=== PATIENT | female | born 1955 | race Caucasian/White ===

== ENCOUNTER 2020-12-17 17:24 | Outpatient (CLI) | payer OTHER, SELFPAY ==
--- NOTE | ~2020-12-17 | XR_ITS ---
EXAMINATION: XR chest 2V DATE: 12/17/2020 17:53 INDICATION: Midsternal to left-sided chest pain. TECHNIQUE: Frontal and lateral views of the chest were obtained. COMPARISON: Chest 2 views 12/31/2017 FINDINGS: There is a left suprahilar mass. No pleural effusion or pneumothorax. The heart size is nor mal. There is mild chronic anterior wedging of multiple thoracic vertebral bodies. IMPRESSION: 1. Left suprahilar mass suspicious for primary bronchogenic carcinoma. Chest CT is recommended. Reviewed, dictated and finalized at location A. [employer]ODUCTION ENGINEER
== END 2020-12-17 17:25 | disposition home or self-care (01) ==
PROVIDERS: PCP Family Medicine; Visit Provider Internal Medicine Cardiovascular Disease
DX: R07.89 Other chest pain (principal); M79.602 Pain in left arm
CPT/HCPCS: 71046

== ENCOUNTER 2020-12-23 16:26 | Outpatient (CLI) | payer OTHER, SELFPAY ==
--- NOTE | ~2020-12-23 | CT_ITS ---
EXAMINATION:CT diagnostic chest wo con DATE: 12/23/2020 16:48 INDICATION: Left lung mass. TECHNIQUE: Computed tomography (CT) of the chest was performed without intravenous contrast. Automate d exposure control and iterative reconstruction technique were employed. The dose-length product (DLP ) was 334.00 mGy-cm. COMPARISON: Chest 2 views 12/17/2020 FINDINGS: There is mild scarring at the lung apices. There is mild emphysema. There is a left hilar m ass contiguous with more peripheral airspace opacities in left upper lobe with lung volume loss. The mass and contiguous airspace opacities the other measure 8.3 x 3.7 cm. The bladder between the mass a nd presumed postobstructive atelectasis is not apparent. There are greater than 10 scattered nodules in the lungs measuring up to 4 mm. There is a 5 mm groundglass opacity in right lower lobe. No pleura l effusion. There is a 10 x 14 mm left supraclavicular lymph node. There is a mildly enlarged prevasc ular lymph node. The heart size is normal. There are coronary artery calcifications. No pericardial e ffusion. There is mild chronic anterior wedging of multiple vertebral bodies. There is moderate thora cic spondylosis. IMPRESSION: 1. Left hilar mass with postobstructive left upper lobe atelectasis, consistent with primary bronchog enic carcinoma. 2. Mild mediastinal and left supraclavicular lymphadenopathy suspicious for metastatic disease. Consi yodit ultrasound-guided core needle biopsy of a left supraclavicular lymph node for diagnosis. 3. Greater than 10 scattered pulmonary nodules measuring up to 4 mm, which may be granulomatous disea se or metastatic disease. Reviewed, dictated and finalized at location A. MARKETING IMPRESSION: 1. Left hilar mass with postobstructive left upper lobe atelectasis, consistent with primary bronchogenic carcinoma. 2. Mild mediastinal and left supraclavicular lymphadenopathy suspicious for met astatic disease. Consider ultrasound-guided core needle biopsy of a left suprac lavicular lymph node for diagnosis. 3. Greater than 10 scattered pulmonary nodules measuring up to 4 mm, which may be granulomatous disease or metastatic disease.
== END 2020-12-23 16:27 | disposition home or self-care (01) ==
PROVIDERS: PCP Family Medicine; Visit Provider Internal Medicine Cardiovascular Disease
DX: R91.8 Other nonspecific abnormal finding of lung field (principal)
CPT/HCPCS: 71250

== ENCOUNTER 2021-01-09 10:56 | Outpatient (CLI) | payer OTHER, SELFPAY ==
--- NOTE | ~2021-01-09 | US_ITS ---
EXAMINATION: US bx lymph node DATE: 01/09/2021 13:39 INDICATION: Left supraclavicular lymphadenopathy. TECHNIQUE: The procedure including the risks, benefits, and alternatives was discussed with the patie nt. Risks discussed included bleeding and infection. The patient understood the risks and agreed to p roceed. The skin overlying the left supraclavicular region was prepped and draped in usual sterile fa shion. Anesthetic was administered with 1% lidocaine subcutaneously. An 18 gauge core biopsy needle was then used to obtain 3 core biopsy specimens under continuous sonographic guidance. The entry sit e was cleaned and dressed. There were no immediate complications. FINDINGS: Ultrasound images demonstrate the needle in an 11 x 10 mm left supraclavicular lymph node. IMPRESSION: 1. Ultrasound-guided core needle biopsy of a left supraclavicular lymph node. Reviewed, dictated and finalized at location A.
== END 2021-01-09 10:57 | disposition home or self-care (01) ==
PROVIDERS: PCP Family Medicine; Referring Provider Internal Medicine Pulmonary Disease; Visit Provider Internal Medicine Cardiovascular Disease
DX: R07.89 Other chest pain (principal); M79.602 Pain in left arm
CPT/HCPCS: 38505; 88305; 88313; 88342

== ENCOUNTER 2021-05-30 06:35 | Emergency (ER) | payer OTHER, SELFPAY ==
[2021-05-30] VITALS (60 sets, daily range): BP systolic 93–151; BP diastolic 51–102; PULSE 95–140; RESP 14–32; TEMP 36.6–36.9; O2SAT 94–99
[2021-05-30] MEDS: SODIUM CHLORIDE 0.9% IV 1,000 ML 999 ML IV CONT ×3 (07:20→10:01)
[2021-05-30] MEDS: PROMETHAZINE HCL 25 MG/ML AMPUL 12.5 MG IV PUSH (07:29)
[2021-05-30 07:37] LABS: Hematocrit 31.8 % (37.0-47.0); Immature Granulocyte Absolute 0.01 K/mm3 (0.00-0.031); Immature Granulocyte Percent A 1.5 % (0-0.5); Lymphocytes Absolute Auto 0.36 K/mm3 (0.9-3.2); Lymphocytes Percent Auto 52.9 % (18.3-44.2); Mean Corpuscular HGB Conc 31.4 g/dl (32-36); Mean Corpuscular Hemoglobin 26.7 pg (26-34); Mean Corpuscular Volume 84.8 fl (80-100); Mean Platelet Volume 9.6 fl (7.4-10.4); Monocytes Absolute Auto 0.1 K/mm3 (0.1-0.6); Monocytes Percent Auto 11.8 % (2.6-8.5); Neutrophils Absolute Auto 0.2 K/mm3 (1.3-6.7); Neutrophils Percent Auto 33.8 % (45.5-73.1); Platelet Count Result 304 k/mm3 (150-375); Red Blood Count 3.75 M/mm3 (4.2-5.4)
[2021-05-30 07:43] LABS: White Blood Count 0.7 K/mm3 (4.5-10.0)
--- NOTE | 2021-05-30 07:43 | PC.NURSE ---
50mL normal saline bag used for Phenergan dilution.
[2021-05-30 07:44] LABS: Hypochromasia 2+ (NORMAL); Platelet Estimate Adequate (Adequate)
[2021-05-30 07:54] LABS: Albumin Level 4.1 g/dL (3.5-5.1); Alkaline Phosphatase 133 U/L (38-126); Anion Gap 17 mmol/L (8-16); Aspartate Amino Transferase 26 U/L (14-36); Bilirubin,Total 0.6 mg/dL (0.2-1.3); Blood Urea Nitrogen 34 mg/dL (7-17); Carbon Dioxide 22 mmol/L (22-30); Chloride 93 mmol/L (98-107); Estimated CRCL calculation 59 ml/min; Estimated Glomerular Filt Rate > 60; Glucose 215 mg/dL (65-110); Lipase 37 U/L (23-300); Potassium 3.3 mmol/L (3.4-5.0); Sodium 132 mmol/L (137-145)
[2021-05-30 07:58] LABS: Alanine Aminotransferase 29 U/L (4-35)
[2021-05-30 09:39] LABS: Add Urine Microscopic? YES; Appearance Urine Clear (Clear); Bacteria Urine Trace /hpf; Bilirubin Urine Negative (Negative); Blood Urine 1+ (Negative); Cellular Casts Urine Present /lpf; Color Urine Yellow (Yellow); Glucose Urine UA 1+ mg/dL (Negative); Ketones Urine Negative (Negative); Leukocyte Esterase Ur Negative LEU/UL (Negative); Mucus Urine Few /lpf; Nitrate Urine Negative (Negative); Protein Urine 2+ mg/dL (Negative); Specific Grav Ur 1.024 (1.001-1.035); Urobilinogen Urine Negative mg/dL (<2.0)
--- NOTE | 2021-05-30 09:52 | ED.NAVMDI ---
HPI - Nausea/Vomiting/Diarrhea General Chief complaint: Nausea/Vomiting/Diarrhea Stated complaint: N/V/D Time Seen by Provider: 05/30/21 07:06 History of Present Illness HPI Narrative: Patient is a 65-year-old female with history of lung cancer with metastases to her brain, hips, and lymph nodes that presents ER with nausea and vomiting. She also has been having some diarrhea. Symptoms began 2 days ago. Patient reports last chemotherapy was high dose and occurred 8 days ago. She sees Dr. Lagn with [facility] at [facility]. Denies fevers or chills. She is weak. She has not been on any antibiotics. Related Data Home Medications Medication Instructions Recorded Confirmed alprazolam 0.25 mg tablet 0.25 mg PO TID PRN 12/22/20 12/22/20 aspirin 81 mg tablet,delayed 81 mg PO DAILY 12/22/20 12/22/20 release metoprolol tartrate 75 mg tablet 75 mg PO Q12H 12/22/20 12/22/20 rosuvastatin 40 mg tablet 40 mg PO DAILY 12/22/20 12/22/20 Allergies Allergy/AdvReac Type Severity Reaction Status Date / Time morphine Allergy Mild Unknown Verified 05/30/21 07:00 codeine Allergy Unknown Unknown Verified 05/30/21 07:00 Review of Systems Review of Systems: All systems reviewed & are unremarkable except as noted in HPI and below Constitutional: Constitutional: Denies chills, Denies fever(s) and Reports weakness ENT: Denies nasal congestion and Denies sore throat Cardiovascular: Cardiovascular: Denies chest pain, Denies rapid heart rate and Denies radiating jaw, neck or arm pain Respiratory: Respiratory: Denies cough and Denies dyspnea Gastrointestinal: Gastrointestinal: Denies abdominal pain, Denies constipation, Reports diarrhea, Reports nausea and Reports vomiting Genitourinary: Genitourinary: Denies nocturia, Denies dysuria and Denies flank pain [facility] Past Medical History Medical History (Updated 05/31/21 @ 15:35 by Edison Rosas MD) Anxiety BMI 32.0-32.9,adult Coronary artery disease Essential (primary) hypertension History of acute myocardial infarction Mass of lung Metastatic lung cancer (metastasis from lung to other site) Screen for colon cancer Screening for breast cancer Surgical History Surgical History History of heart artery stent Hx of tonsillectomy Family History Family History Other Diabetes mellitus Heart disease Social History Social History Smoking status: Former smoker Alcohol intake: current Exam Narrative: GENERAL: Fatigue-appearing, well-nourished, and in no acute distress. HEAD: Normocephalic, atraumatic. EYES: PERRL and EOMI. ENT: Mucous membranes moist. CHEST: Clear to auscultation. No respiratory distress. HEART: Tachycardic and regular.. Normal peripheral pulses. ABDOMEN: Soft, nontender, nondistended. EXTREMITIES: Normal range of motion. No edema. SKIN: Warm, dry, no rash. NEURO: Alert and oriented x3. PSYCH: Normal mood and affect. Course Course Emergency Course: I discussed case with the on-call oncologist Dr. Lind at [facility]. He recommends the patient receive IV antibiotics if she were to go to [facility] which patient would like to do. She has been started on vancomycin and Zosyn. She has had blood cultures and urine is cultured. She has had 3 L of IV fluid and is being started on a continuous drip of fluid. Dr. Barr with the hospitalist service has accepted the patient. Reevaluation(s) Reevaluation #1: Patient resting comfortably. White blood cell count trending up. Patient was found to have a critical potassium and hemoglobin on a.m. labs. Likely related to IV fluid patient been receiving. She received 1 unit of packed red blood cells and also received oral and IV potassium replacement. She now has a bed at [facility] and will be transferred. Date: 05/31/21
--- NOTE | 2021-05-30 13:45 | PC.NURSE ---
Patient has had multiple episodes of diarrhea in bed. Patient reports it just comes out. Linens and depends have been changed.
--- NOTE | 2021-05-30 14:23 | PC.NURSE ---
Amy from [facility] called asking if we still need a bed for the pt. Reported that bed's are still unavailable but may be open by end of day
--- NOTE | 2021-05-30 14:39 | PC.NURSE ---
Patient still on waitlist at this time, will update patient and family upon further information. Patient resting comfortably on stretcher.
[2021-05-30] MEDS: SODIUM CHLORIDE 0.9% IV 1,000 ML 125 ML IV CONT (18:27)
--- NOTE | 2021-05-30 19:23 | PC.NURSE ---
Report received from RADHA Karimi. Assumed care of patient at this time.
--- NOTE | 2021-05-30 20:49 | PC.NURSE ---
Spoke to Fany at [facility]...no beds available at this time. Still anticipating discharges this evening. Will call us if a bed becomes available.
[2021-05-30] MEDS: ONDANSETRON INJ 4 MG/2 ML VIAL IV PUSH (21:03)
[2021-05-31] VITALS (28 sets, daily range): BP systolic 88–111; BP diastolic 37–72; PULSE 76–97; RESP 14–27; TEMP 36.7; O2SAT 95–100
[2021-05-31] MEDS: SODIUM CHLORIDE 0.9% IV 1,000 ML 999 ML IV CONT (01:00)
[2021-05-31] MEDS: SODIUM CHLORIDE 0.9% IV 1,000 ML 125 ML IV CONT (03:05)
[2021-05-31 08:16] LABS: Eosinophils Percent Auto 0.8 % (0-4.4); Hematocrit 22.7 % (37.0-47.0); Immature Granulocyte Absolute 0.02 K/mm3 (0.00-0.031); Immature Granulocyte Percent A 1.5 % (0-0.5); Lymphocytes Percent Auto 69.2 % (18.3-44.2); Mean Corpuscular Hemoglobin 26.3 pg (26-34); Mean Corpuscular Volume 87.6 fl (80-100); Mean Platelet Volume 9.6 fl (7.4-10.4); Monocytes Absolute Auto 0.1 K/mm3 (0.1-0.6); Neutrophils Absolute Auto 0.2 K/mm3 (1.3-6.7); Neutrophils Percent Auto 18.5 % (45.5-73.1); Platelet Count Result 135 k/mm3 (150-375); Red Blood Count 2.59 M/mm3 (4.2-5.4)
[2021-05-31 08:26] LABS: White Blood Count 1.3 K/mm3 (4.5-10.0)
[2021-05-31 08:27] LABS: Hemoglobin 6.8 g/dL (12.0-15.0)
[2021-05-31 08:28] LABS: Hypochromasia 1+ (NORMAL)
[2021-05-31 08:32] LABS: Anion Gap 7 mmol/L (8-16); Blood Urea Nitrogen 15 mg/dL (7-17); Carbon Dioxide 26 mmol/L (22-30); Chloride 102 mmol/L (98-107); Estimated CRCL calculation 74 ml/min; Estimated Glomerular Filt Rate > 60; Glucose 102 mg/dL (65-110); Potassium 2.5 mmol/L (3.4-5.0); Sodium 135 mmol/L (137-145)
[2021-05-31] MEDS: POTASSIUM CHLORIDE 20 MEQ TABLET 40 MEQ PO (08:40)
[2021-05-31] MEDS: TUBING, BLOOD PLUM PUMP TUBING 1 EACH XX (11:15)
[2021-05-31] MEDS: SODIUM CHLORIDE 0.9% IV 250 ML 30 ML IV CONT (11:48)
== END 2021-05-31 16:18 | disposition short-term general hospital (02) ==
PROVIDERS: Emergency Medicine; Emergency Provider Emergency Medicine; PCP Family Medicine
DX: D70.9 Neutropenia, unspecified (principal); R19.7 Diarrhea, unspecified; E87.6 Hypokalemia; D64.9 Anemia, unspecified; C34.90 Malignant neoplasm of unspecified part of unspecified bronchus or lung; C77.9 Secondary and unspecified malignant neoplasm of lymph node, unspecified; C79.51 Secondary malignant neoplasm of bone; C79.31 Secondary malignant neoplasm of brain; I25.10 Atherosclerotic heart disease of native coronary artery without angina pectoris; I10 Essential (primary) hypertension; I25.2 Old myocardial infarction; F41.9 Anxiety disorder, unspecified; Z79.82 Long term (current) use of aspirin; Z79.899 Other long term (current) drug therapy; Z95.5 Presence of coronary angioplasty implant and graft; Z87.891 Personal history of nicotine dependence
CPT/HCPCS: 36415; 36430; 51701; 80048; 80053; 81001; 81025; 83690; 85025; 86850; 86900; 86901; 86920; 87040; 87086; 96361; 96365; 96366; 96367; 96368; 96375; 99285; A9270; J2405; J2543; J2550; J3370; J3480; J7030; J7050; P9016

== ENCOUNTER 2021-06-25 11:19 | Inpatient (IN) | payer OTHER, SELFPAY ==
[2021-06-25] VITALS (73 sets, daily range): BP systolic 74–129; BP diastolic 30–73; PULSE 77–94; RESP 17–30; TEMP 36.6–37.6; O2SAT 87–100; BMI 28.1
--- NOTE | ~2021-06-25 | US_ITS ---
EXAMINATION: US thoracentesis DATE: 06/30/2021 10:32 INDICATION: pleural effusion TECHNIQUE: The procedure and its risks, benefits, and alternatives were discussed with the patient. P otential risks discussed included bleeding, infection, and pneumothorax. The patient understood the r isks and agreed to proceed. The skin was prepped and draped in sterile fashion. 1% lidocaine was used for local anesthesia. Under ultrasound guidance, a 5 Fr catheter with trochar was advanced into the left pleural effusion. Fluid was aspirated. The catheter was removed, and a dressing was applied. The re were no immediate complications. FINDINGS: Ultrasound images demonstrate a left pleural effusion and the catheter within the fluid. IMPRESSION: 1. Successful ultrasound-guided thoracentesis yielding 400 mL of serosanguineous fluid. Reviewed, dictated and finalized at location A. IMPRESSION: 1. Successful ultrasound-guided thoracentesis yielding 400 mL of serosanguineo us fluid.
--- NOTE | ~2021-06-25 | CT_ITS ---
EXAMINATION: CTA chest PE protocol DATE: 06/25/2021 14:51 INDICATION: Transient alteration of awareness, shortness of breath, lung cancer TECHNIQUE: Computed tomography angiography (CTA) of the chest was performed with 100 mL Omnipaque-350 intravenous contrast timed to evaluate the pulmonary arteries. Coronal maximum intensity projection 3D-reconstructions were created by the technologist. The dose-length product (DLP) was 458.30 mGy-cm. Automated exposure control and iterative reconstruction technique were employed. COMPARISON: 12/23/2020 FINDINGS: The pulmonary arteries are well-opacified. No pulmonary embolism is identified. There is a moderate size left pleural effusion. The previously described infiltrating left perihilar mass is now well demonstrated however there is now complete left upper lobe collapse. A small portion in the sup erior aspect of the left lower lobe remains aerated. There is near-complete atelectasis of the inferi or portion of the left lower lobe. A small right pleural effusion is present. There has been interval development of innumerable small nodules throughout the right lung and throughout the visualized por tions of the left lung which measure up to 4 mm. There is no pneumothorax. The heart size is normal. There is subcarinal and right paratracheal lymphadenopathy. Calcified coronary artery atherosclerosis is noted. A sclerotic lesion has developed in the posterior aspect of the L1 vertebral body. IMPRESSION: 1. No pulmonary embolism identified. 2. Moderate-sized left pleural effusion with significant atelectasis of the left lower lobe and compl ete collapse of the left upper lobe due to infiltrate hilar mass. 3. Innumerable small nodules scattered throughout all visible aerated lungs, mediastinal lymphadenopa thy, and lytic lesions of the right scapula and L1 vertebral body, consistent with metastatic disease . Reviewed, dictated and finalized at location A. IMPRESSION: 1. No pulmonary embolism identified. 2. Moderate-sized left pleural effusion with significant atelectasis of the lef t lower lobe and complete collapse of the left upper lobe due to infiltrate hil ar mass. 3. Innumerable small nodules scattered throughout all visible aerated lungs, me diastinal lymphadenopathy, and lytic lesions of the right scapula and L1 verteb ral body, consistent with metastatic disease.
--- NOTE | ~2021-06-25 | XR_ITS ---
EXAMINATION: XR chest 1V portable DATE: 07/01/2021 05:41 INDICATION: Pleural effusion. TECHNIQUE: A single frontal view of the chest was obtained. COMPARISON: Chest single view 06/30/2021 FINDINGS: There is complete opacification of left hemithorax with volume loss. There are innumerable nodules in right lung. There are airspace opacities in perihilar right lung and peripheral left midlu ng zone. No pneumothorax. The heart size is normal. IMPRESSION: 1. Stable complete opacification of left hemithorax with volume loss, likely a combination of primary bronchogenic carcinoma and atelectasis. 2. Innumerable nodules in right lung, consistent with metastatic disease. 3. Worsened airspace opacities in right perihilar region and peripheral right midlung zone, consisten t with pulmonary edema versus pneumonia. Reviewed, dictated and finalized at location A. IMPRESSION: 1. Stable complete opacification of left hemithorax with volume loss, likely a combination of primary bronchogenic carcinoma and atelectasis. 2. Innumerable nodules in right lung, consistent with metastatic disease. 3. Worsened airspace opacities in right perihilar region and peripheral right m idlung zone, consistent with pulmonary edema versus pneumonia.
--- NOTE | ~2021-06-25 | CT_ITS ---
EXAMINATION: CT brain wo con INDICATION: Transient alteration of awareness, lung cancer COMPARISON: 03/01/2013 TECHNIQUE: Standard unenhanced head CT. The dose-length product (DLP) was 681.00 mGy-cm. The mA was a djusted according to patient size. Iterative reconstruction technique was employed. FINDINGS: There is no acute intraparenchymal hemorrhage. No evidence of mass lesion. No evidence of a cute infarction. There is mild periventricular and subcortical hypodensity probably related to small vessel ischemic disease. There is mild prominence of the sulci and ventricles related to cerebral atr ophy. Intracranial calcified cerebral atherosclerosis is noted. There are no extra-axial collections. There is no mass effect or midline shift. The orbits and soft tissues are unremarkable. There is mil d mucosal thickening of the paranasal sinuses. IMPRESSION: 1. No acute intracranial abnormality. 2. Age related findings. Reviewed, dictated and finalized at location A.
--- NOTE | ~2021-06-25 | XR_ITS ---
EXAMINATION: XR_CXR1VTHORA_CR DATE: 06/26/2021 17:18 INDICATION: Left pleural effusion postthoracentesis TECHNIQUE: frontal view of the chest was obtained. COMPARISON: Chest radiograph dated 06/25/21 at 4:03 PM FINDINGS: Persistent airspace opacities throughout the left lung consistent with likely combination of atelecta sis and pneumonia. There is new aeration of portions of the left mid and lower lung zone consistent w ith decrease in size of a still moderate to large left pleural effusion. No pneumothorax. There is a diffuse reticulonodular pattern throughout the right lung with appearance on prior CT suggesting meta static disease possibly with superimposed pulmonary edema and/or pneumonia. No right-sided pleural ef fusion. The left side of the cardiac mediastinal silhouette remains obscured. Left internal jugular c entral venous catheter with distal tip at the confluence of the superior vena cava and left brachioce phalic vein. IMPRESSION: 1. Decreased now moderate to large left pleural effusion postthoracentesis. 2. Extensive airspace opacities throughout the left lung likely combination of atelectasis and pneumo eladia. 3. Reticulonodular pattern throughout the right lung suspicious for metastatic disease. Reviewed, dictated and finalized at location A. IMPRESSION: 1. Decreased now moderate to large left pleural effusion postthoracentesis. 2. Extensive airspace opacities throughout the left lung likely combination of atelectasis and pneumonia. 3. Reticulonodular pattern throughout the right lung suspicious for metastatic disease.
--- NOTE | ~2021-06-25 | XR_ITS ---
EXAMINATION: XR chest 1V portable DATE: 06/28/2021 05:38 INDICATION: Pleural effusion TECHNIQUE: frontal view of the chest was obtained. COMPARISON: Chest radiograph dated 06/27/2021 FINDINGS: Continued progression of a large left pleural effusion with associated collapse of the left lung resu lting in now essentially complete opacification of the left hemithorax. Again seen is diffuse reticul onodular pattern throughout the right lung. No pneumothorax or right pleural effusion. The left side of the cardiomediastinal silhouette remains obscured. Left internal jugular central venous catheter w ith distal tip at the confluence of the superior vena cava and left brachiocephalic vein. IMPRESSION: 1. Complete opacification of the left hemithorax consistent with large left pleural effusion and asso ciated atelectasis, cannot exclude underlying pneumonia or malignancy. 2. Reticulonodular pattern throughout the right lung suspicious for metastatic disease and could not exclude superimposed mild pulmonary edema. Reviewed, dictated and finalized at location A. IMPRESSION: 1. Complete opacification of the left hemithorax consistent with large left ple ural effusion and associated atelectasis, cannot exclude underlying pneumonia o r malignancy. 2. Reticulonodular pattern throughout the right lung suspicious for metastatic disease and could not exclude superimposed mild pulmonary edema.
--- NOTE | ~2021-06-25 | XR_ITS ---
EXAMINATION: XR chest port-a-cath/central DATE: 06/25/2021 16:33 INDICATION: Central line placement. TECHNIQUE: A single frontal view of the chest was obtained on 2 radiographs. COMPARISON: Chest single view 06/25/2021 at 12:19 PM FINDINGS: There is a large left pleural effusion with near complete opacification of left hemithorax. There are small nodules in right lung. No pneumothorax. The heart size is obscured. A left internal jugular central venous catheter is seen with tip in the superior vena cava. IMPRESSION: 1. Central line tip in superior vena cava. 2. Large left pleural effusion. 3. Small right lung nodules, consistent with metastatic disease. Reviewed, dictated and finalized at location A.
--- NOTE | ~2021-06-25 | XR_ITS ---
EXAMINATION: XR chest 1V INDICATION: Syncope and shortness of breath, history of left lung cancer TECHNIQUE: AP view of the chest is obtained. COMPARISON: 12/17/2020 FINDINGS: There is near complete opacification of the left hemithorax. The right lung is clear. The c ardiac silhouette is obscured. The visualized osseous structures are unremarkable no pneumothorax is identified. IMPRESSION: 1. Near complete opacification of the left hemithorax which may be due to accommodation of pleural ef fusion and/or atelectasis and/or pneumonia. Reviewed, dictated and finalized at location A. IMPRESSION: 1. Near complete opacification of the left hemithorax which may be due to accom modation of pleural effusion and/or atelectasis and/or pneumonia.
--- NOTE | ~2021-06-25 | US_ITS ---
EXAMINATION: US thoracentesis DATE: 06/26/2021 17:18 INDICATION: Left pleural effusion TECHNIQUE: The procedure and its risks and benefits were discussed with the patient. Potential risks discussed included bleeding, infection, and pneumothorax. The patient understood the risks and agreed to proceed. The skin was prepped and draped in sterile fashion. 1% lidocaine was used for local anes thesia. Under ultrasound guidance, a 5 Fr catheter with trochar was advanced into the left pleural ef fusion. Fluid was aspirated until patient began to experience some discomfort with inspiration at [facility] point collection of fluid was halted, the catheter removed, and a dressing applied. There were no immediate complications. FINDINGS: Ultrasound images demonstrate a large left pleural effusion and the catheter within the fluid. IMPRESSION: 1. Successful ultrasound-guided thoracentesis yielding 700 mL of margarita-colored fluid. Reviewed, dictated and finalized at location A.
--- NOTE | ~2021-06-25 | CT_ITS ---
EXAMINATION: CT abdomen pelvis wo con DATE: 06/25/2021 16:49 INDICATION: Vomiting. Diarrhea. TECHNIQUE: Computed tomography (CT) of the abdomen and pelvis was performed without intravenous contr ast. Automated exposure control and iterative reconstruction technique were employed. The dose-length product was 1137.32 mGy-cm. COMPARISON: Chest CT 12/23/2020 FINDINGS: The visualized portions of the lung bases demonstrate a large left pleural effusion. There are airspace opacities throughout the visualized portion of left lung. There are peripheral airspace opacities in right lower lobe, likely predominantly atelectasis. There are innumerable nodules in rig ht lung, consistent with metastatic disease. The heart size is normal. No pericardial effusion. The l iver, gallbladder, spleen, pancreas, adrenal glands, and kidneys are normal. There are no dilated loo ps of bowel. The appendix measures 8 mm in diameter, but no surrounding inflammation. There are no pa thologically enlarged lymph nodes. There is no free intraperitoneal fluid. There is a sclerotic lesio n in L1 vertebral body, consistent with metastatic disease. There is a hemangioma in T9 vertebral bod y. IMPRESSION: 1. Large malignant left pleural effusion. 2. Airspace opacities in left lung, consistent with atelectasis and pneumonia. 3. Innumerable lung nodules and L1 sclerotic lesion, consistent metastatic disease. Reviewed, dictated and finalized at location A. IMPRESSION: 1. Large malignant left pleural effusion. 2. Airspace opacities in left lung, consistent with atelectasis and pneumonia. 3. Innumerable lung nodules and L1 sclerotic lesion, consistent metastatic dise ase.
--- NOTE | ~2021-06-25 | XR_ITS ---
EXAMINATION: XR chest 1V portable DATE: 06/27/2021 05:11 INDICATION: Pleural effusion TECHNIQUE: frontal view of the chest was obtained. COMPARISON: Chest radiograph dated 06/26/2021 FINDINGS: Interval increase in now large left pleural effusion with decrease in now only a small amount of aera rayray lung at the left upper lung zone. Again seen is diffuse reticulonodular pattern throughout the ri ght lung. No pneumothorax or right pleural effusion. The left side of the cardiomediastinal silhouett e remains obscured. Left internal jugular central venous catheter with distal tip at the confluence o f the superior vena cava and left brachiocephalic vein. IMPRESSION: 1. Near complete opacification of the left hemithorax consistent with enlarging left pleural effusion and likely combination of atelectasis and pneumonia. 2. Reticulonodular pattern throughout the right lung suspicious for metastatic disease and could not exclude superimposed mild pulmonary edema. Reviewed, dictated and finalized at location A.
--- NOTE | ~2021-06-25 | XR_ITS ---
EXAMINATION: XR_CXR1VTHORA_CR DATE: 06/30/2021 10:35 INDICATION: Left pleural effusion status post thoracentesis. TECHNIQUE: A single frontal view of the chest was obtained. COMPARISON: Chest single view 06/29/2021, chest CT 06/25/2021, chest 2 views 12/31/2017 FINDINGS: There is complete opacification of left hemithorax with volume loss. There are scattered sm all nodules in right lung. No right-sided pleural effusion. No pneumothorax. The heart size is normal . A left internal jugular central venous catheter is seen with tip in the superior vena cava. IMPRESSION: 1. Complete opacification of left hemithorax with volume loss, likely predominantly malignancy and at electasis. 2. Right lung nodules, consistent with metastatic disease. Reviewed, dictated and finalized at location A. IMPRESSION: 1. Complete opacification of left hemithorax with volume loss, likely predomina ntly malignancy and atelectasis. 2. Right lung nodules, consistent with metastatic disease.
--- NOTE | ~2021-06-25 | XR_ITS ---
EXAMINATION: XR chest 1V portable DATE: 06/29/2021 06:07 INDICATION: Pleural effusion TECHNIQUE: frontal view of the chest was obtained. COMPARISON: Chest radiograph dated 06/28/2021 FINDINGS: Persistent complete opacification of the left hemithorax which obscures the left side of the cardiome diastinal silhouette. There does appear to be some leftward shift of the heart and mediastinum sugges ting a greater degree of atelectasis than can be accounted for by the large pleural effusion. Unchang ed diffuse reticulonodular pattern throughout the right lung. No pneumothorax or right-sided pleural effusion. Left internal jugular central venous port catheter with distal tip at the junction of the l eft brachiocephalic vein and superior vena cava. IMPRESSION: 1. Persistent complete opacification of left hemithorax consistent with large left pleural effusion a nd atelectasis. Cannot exclude underlying pneumonia or malignancy. 2. Reticulonodular pattern throughout the right lung suspicious for metastatic disease and could not exclude superimposed mild pulmonary edema. Reviewed, dictated and finalized at location A. IMPRESSION: 1. Persistent complete opacification of left hemithorax consistent with large l eft pleural effusion and atelectasis. Cannot exclude underlying pneumonia or ma lignancy. 2. Reticulonodular pattern throughout the right lung suspicious for metastatic disease and could not exclude superimposed mild pulmonary edema.
--- NOTE | 2021-06-25 11:22 | ECG_ITS ---
Measurements Intervals [place] Rate: 90 P: 52 KS: 136 QRS: 16 QRSD: 90 T: 1 QT: 365 QTc: 447 Interpretive Statements SINUS RHYTHM LOW QRS VOLTAGE IN LIMB LEADS BASELINE ARTIFACT- I, II, III, AVR, AVL, AVF, V5-V6 BORDERLINE ECG Electronically Signed On 06-25-2021 11:59:08 CDT by Isaac Howard D.O.
[2021-06-25] MEDS: SODIUM CHLORIDE 0.9% IV 1,000 ML 999 ML IV CONT ×3 (11:30→13:29)
[2021-06-25 11:54] LABS: Hematocrit 29.9 % (37.0-47.0); Hemoglobin 9.6 g/dL (12.0-15.0); Immature Granulocyte Absolute 0.03 K/mm3 (0.00-0.031); Immature Granulocyte Percent A 1.6 % (0-0.5); Lymphocytes Absolute Auto 0.84 K/mm3 (0.9-3.2); Lymphocytes Percent Auto 45.7 % (18.3-44.2); Mean Corpuscular HGB Conc 32.1 g/dl (32-36); Mean Corpuscular Hemoglobin 30.1 pg (26-34); Mean Corpuscular Volume 93.7 fl (80-100); Mean Platelet Volume 9.7 fl (7.4-10.4); Monocytes Absolute Auto 0.1 K/mm3 (0.1-0.6); Monocytes Percent Auto 5.4 % (2.6-8.5); Neutrophils Absolute Auto 0.9 K/mm3 (1.3-6.7); Neutrophils Percent Auto 47.3 % (45.5-73.1); Platelet Count Result 91 k/mm3 (150-375); Red Blood Count 3.19 M/mm3 (4.2-5.4); Red Cell Distribution Width 22.2 % (11.5-14.5)
[2021-06-25 11:56] LABS: White Blood Count 1.8 K/mm3 (4.5-10.0)
[2021-06-25 12:10] LABS: Anion Gap 13 mmol/L (8-16); Blood Urea Nitrogen 25 mg/dL (7-17); Calcium 7.9 mg/dL (8.4-10.2); Carbon Dioxide 27 mmol/L (22-30); Chloride 90 mmol/L (98-107); Estimated CRCL calculation 53 ml/min; Estimated Glomerular Filt Rate 56; Glucose 162 mg/dL (65-110); Potassium 3.1 mmol/L (3.4-5.0); Sodium 130 mmol/L (137-145)
--- NOTE | 2021-06-25 12:16 | ED.SYNCOPE ---
HPI - Syncope General Chief Complaint: Syncope Stated Complaint: low bp Time Seen by Provider: 06/25/21 11:24 Source: patient, family and RN notes reviewed Mode of arrival: EMS Limitations: no limitations History of Present Illness HPI narrative: This is a 65 year old female with stage 4 lung CA with metastases to bones, brain and thyroid who presents from home for evaluation of a syncopal episode. Patient's son states they were trying to get patient in the car to go to ER, and she passed out when she stood up to get in car. He was holding her and he laid her down on the ground. He was taking patient to [facility] ER for evaluation of dizziness, anorexia and weakness. Patient has been weak for that past 4-5 weeks from getting chemotherapy. Her last chemo treatment was 3 weeks ago. She reports nausea, vomiting and diarrhea that has been occurring since starting chemo. Her son also reports disorientation. Patient denies headache, chest pain, fever or cough. She reports constant shortness of breath for several weeks. She states she had thoracentesis performed 2 weeks ago during her last hospitalization at [facility]. Her oncologist is Dr. Vaughn. Related Data Home Medications Medication Instructions Recorded Confirmed alprazolam 0.25 mg tablet 0.25 mg PO TID PRN 12/22/20 06/25/21 aspirin 81 mg tablet,delayed 81 mg PO DAILY 12/22/20 06/25/21 release metoprolol tartrate 75 mg tablet 75 mg PO Q12H 12/22/20 06/25/21 rosuvastatin 40 mg tablet 40 mg PO DAILY 12/22/20 06/25/21 isosorbide mononitrate 30 mg PO DAILY 06/25/21 06/25/21 Allergies Allergy/AdvReac Type Severity Reaction Status Date / Time morphine Allergy Mild Unknown Verified 06/25/21 13:09 codeine Allergy Unknown Unknown Verified 06/25/21 13:09 Review of Systems Review of Systems: All systems reviewed & are unremarkable except as noted in HPI and below PMFSH Past Medical History Medical History (Updated 06/25/21 @ 20:54 by Marisol Chavez MD) Anxiety Coronary artery disease Posterior MS status post angioplasty and bare metal stent to the circumflex on 09/30/2012. Patient has instent restensosis with subsequent drug eluting stent to the circumflex on 02/27/2013. Essential (primary) hypertension Mass of lung Metastatic lung cancer (metastasis from lung to other site) Surgical History Surgical History (Updated 06/25/21 @ 20:05 by Edilma Steward PA-C) History of heart artery stent History of tonsillectomy Family History Family History Other Diabetes mellitus Heart disease Social History Social History Smoking status: Former smoker Smoking end date: 09/29/12 Alcohol intake: never Substance use: never Spiritual care concerns: No Exam Const: General: no acute distress and alert Orientation/consciousness: patient oriented x3 Eyes: Pupils: Equal, round and reactive pupils present EOM: EOMs intact bilaterally Chest: Chest palpation & inspection: normal inspection of the chest Resp: Effort & Inspection: normal respiratory effort and no retractions Auscultation: clear to auscultation bilaterally Cardio: Rate: regular rate Rhythm: regular rhythm Heart sounds: no murmurs GI: GI Palp: Yes Soft to palpation, Yes Tenderness to palpation present (GI) and No Guarding due to palpation present (GI) Auscultation: normal bowel sounds Skin: General skin exam: normal color Rashes: no rashes Neuro: General: patient oriented x3, moves all extremities and CN's II-XI intact bilaterally Psych: Mental Status: mental status grossly normal Affect: normal affect Course Reevaluation(s) Reevaluation #1: Patient initially seemed to respond to IVF but she is hypotensive again. I will started CVL and pressors as patient is full code. no definite source of infection found. PAtient has been taking her metoprolol
--- NOTE | 2021-06-25 12:17 | PC.NURSE ---
Pt off floor to radiology
[2021-06-25 12:52] LABS: INR 1.1; Partial Thromboplastin Time 31.7 SECONDS (22.3-36.8); Prothrombin Time 14.2 Seconds (11.1-14.7)
[2021-06-25 13:07] LABS: Alanine Aminotransferase 23 U/L (4-35); Albumin Level 3.4 g/dL (3.5-5.1); Alkaline Phosphatase 84 U/L (38-126); Aspartate Amino Transferase 41 U/L (14-36); Bilirubin,Total 0.5 mg/dL (0.2-1.3); Lipase 160 U/L (23-300); Magnesium 1.5 mg/dL (1.6-2.3)
[2021-06-25] MEDS: ONDANSETRON INJ 4 MG/2 ML VIAL IV PUSH (13:07)
[2021-06-25 13:16] LABS: Lactic Acid Reflex 1.5 mmol/L (0.7-2.1)
--- NOTE | 2021-06-25 14:39 | PC.NURSE ---
off floor to radiology
[2021-06-25 14:56] LABS: Add Urine Microscopic? YES; Appearance Urine Clear (Clear); Bacteria Urine Trace /hpf; Bilirubin Urine Negative (Negative); Blood Urine 2+ (Negative); Color Urine Yellow (Yellow); Glucose Urine UA Negative (Negative); Ketones Urine Negative (Negative); Leukocyte Esterase Ur Trace LEU/UL (Negative); Mucus Urine Rare /lpf; Nitrate Urine Negative (Negative); Protein Urine 2+ mg/dL (Negative); Specific Grav Ur 1.019 (1.001-1.035); Squamous Epithelial Cell Urine Occasional /hpf (Few); Urobilinogen Urine Negative mg/dL (<2.0)
--- NOTE | 2021-06-25 15:19 | PC.NURSE ---
MD at bedside, speaking to son about central line and need for better blood pressure control. Son and patient OK with procedure. Risks and benefits explained.
--- NOTE | 2021-06-25 16:55 | PC.NURSE ---
OK to use central line per Dr Chavez.
[2021-06-25] MEDS: NOREPINEPHRINE 8 MG/D5W 250 ML 8 MG/250 ML BAG 9.38 MG IV CONT (16:59)
[2021-06-25] MEDS: POTASSIUM CHLORIDE 20 MEQ TABLET 40 MEQ PO (18:14)
--- NOTE | 2021-06-25 18:43 | ADMGEN ---
This patient, Alana Solis, was admitted to Intensive Care Unit-11. Patient/family oriented to hospital policies and general routines including ID bracelet, bed and alarms, visiting hours, pain management, procedures, bathroom and other care routines, personal items, smoking policy, room service/diet, and visiting hours. Information on how to activate the Rapid Response Team has been discussed. Patient/Family are encouraged to report perceived risks to care and to ask questions if they do not understand what they are told or what they should do.
--- NOTE | 2021-06-25 19:30 | PM.IMHP ---
H&P: HPI History of Present Illness Date/Time: 06/25/21 19:30 Chief Complaint: Weakness, nausea, vomiting, and diarrhea. Narrative: This is a very pleasant 65-year-old female with stage IV non-small cell lung cancer who presented to the emergency department earlier today via EMS from home for evaluation of generalized weakness with nausea, vomiting, and diarrhea. She had her 5th cycle of chemotherapy on June 19 and it is not unusual for her to have nausea, vomiting, and diarrhea around this time after treatment. Her symptoms this time have seemed to be much more severe and she has not been able to hold down oral or liquid for several days. She has become progressively more weak and family members have noted that she seems to be a bit disoriented. This morning they were going to take her to the emergency room in [place] (her oncologist is on staff there) however when she stood up to get into the car she reportedly had a brief syncopal episode. EMS was summoned and on their arrival her systolic blood pressure was in the 70s and she was brought to [place]. Despite adequate IV fluid rehydration the emergency department her blood pressures have remained soft and she is now being admitted to the ICU on norepinephrine. At the time my evaluation she has no specific complaints aside from generalized weakness. She denies significant shortness of breath though she has conversational dyspnea and is only speaking in 3 to 4 word sentences. Imaging today showed a large, probably malignant, left pleural effusion and left lung opacities consistent with atelectasis and/or pneumonia. Patient reports having a thoracentesis a couple of weeks ago when hospitalized at [facility] and since that time she has had intermittent cough which is rarely productive of clear though occasionally cloudy sputum. She has not had fever or chills but reports sweats last evening. She has had mild sinus congestion but reports allergies this time of year. No sick contacts or exposure to those positive for COVID 19. No otalgia or odynophagia. She has not had chest pain or pleuritic pain. No abdominal pain or dysuria. Review of Systems Review of Systems: Twelve systems were reviewed with pertinent positives and negatives as per HPI. Patient reports a 30 lb weight loss since January 2021, when she was diagnosed with lung cancer. She denies headache, auditory and visual changes, focal weakness, and paresthesias. Except as documented, all other systems were reviewed and are negative. [facility] Past Medical History Medical History (Updated 06/25/21 @ 22:43 by Edilma Steward PA-C) Anxiety Coronary artery disease Posterior MD status post angioplasty and bare metal stent to the circumflex on 09/30/2012. Patient has instent restensosis with subsequent drug eluting stent to the circumflex on 02/27/2013. 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 Patient of Dr. Huan Vaughn. Surgical History Surgical History (Updated 06/25/21 @ 22:38 by Edilma Steward PA-C) History of heart artery stent Bare metal stent to the circumflex with instent restenoses since subsequent drug-eluting stent to the same as above. History of tonsillectomy Family History Family History Other Diabetes mellitus Heart disease Social History Social History (Updated 06/25/21 @ 22:39 by Edilma Steward PA-C) Social History: Surrogate decision maker: Jacque Olmstead, daughter. Code status: Full code. Smoking packs per day: 1.5 Smoking cigarettes per day: 30.0 Years smoked: 40 Smoking pack-years: 60.00 Smoking status: Former smoker Smoking end date: 09/29/12 Alcohol intake: never Substance use: never
[2021-06-25] MEDS: CENTRAL LINE FLUSH 10 ML IV PUSH ×2 (19:43)
[2021-06-25] MEDS: MAGNESIUM SULF 2 GM/WATER 50ML 2 GM/50 ML BAG IVPB (21:06)
[2021-06-25 22:17] LABS: Anion Gap 7 mmol/L (8-16); Blood Urea Nitrogen 16 mg/dL (7-17); Calcium 7.3 mg/dL (8.4-10.2); Carbon Dioxide 24 mmol/L (22-30); Chloride 101 mmol/L (98-107); Estimated CRCL calculation 96 ml/min; Estimated Glomerular Filt Rate > 60; Glucose 134 mg/dL (65-110); Magnesium 2.6 mg/dL (1.6-2.3); Potassium 2.9 mmol/L (3.4-5.0); Sodium 132 mmol/L (137-145)
[2021-06-25] MEDS: SODIUM CHLORIDE 0.9% IV 1,000 ML 100 ML IV CONT (23:15)
[2021-06-26] VITALS (21 sets, daily range): BP systolic 97–135; BP diastolic 48–116; PULSE 94–135; RESP 20–35; TEMP 36.8–37.6; O2SAT 87–98; BMI 28.3
[2021-06-26] MEDS: ONDANSETRON INJ 4 MG/2 ML VIAL IV PUSH ×2 (04:58→08:36)
[2021-06-26] MEDS: CENTRAL LINE FLUSH 10 ML IV PUSH ×3 (05:54→22:03)
[2021-06-26 05:58] LABS: Hematocrit 26.3 % (37.0-47.0); Hemoglobin 8.4 g/dL (12.0-15.0); Immature Granulocyte Absolute 0.02 K/mm3 (0.00-0.031); Immature Granulocyte Percent A 1.1 % (0-0.5); Immature Platelet Fraction Pct 1.8 % (0.9-11.2); Lymphocytes Absolute Auto 0.72 K/mm3 (0.9-3.2); Lymphocytes Percent Auto 40.4 % (18.3-44.2); Mean Corpuscular HGB Conc 31.9 g/dl (32-36); Mean Corpuscular Hemoglobin 29.9 pg (26-34); Mean Corpuscular Volume 93.6 fl (80-100); Mean Platelet Volume 9.2 fl (7.4-10.4); Monocytes Absolute Auto 0.1 K/mm3 (0.1-0.6); Monocytes Percent Auto 6.7 % (2.6-8.5); Neutrophils Absolute Auto 0.9 K/mm3 (1.3-6.7); Neutrophils Percent Auto 51.8 % (45.5-73.1); Platelet Count Result 69 k/mm3 (150-375); Red Blood Count 2.81 M/mm3 (4.2-5.4); Red Cell Distribution Width 22.5 % (11.5-14.5)
[2021-06-26 06:10] LABS: Alanine Aminotransferase 20 U/L (4-35); Alkaline Phosphatase 79 U/L (38-126); Anion Gap 6 mmol/L (8-16); Aspartate Amino Transferase 42 U/L (14-36); Bilirubin,Total 0.4 mg/dL (0.2-1.3); Blood Urea Nitrogen 10 mg/dL (7-17); Calcium 7.7 mg/dL (8.4-10.2); Carbon Dioxide 24 mmol/L (22-30); Chloride 103 mmol/L (98-107); Estimated CRCL calculation 96 ml/min; Estimated Glomerular Filt Rate > 60; Glucose 162 mg/dL (65-110); Magnesium 1.8 mg/dL (1.6-2.3); Phosphorus 1.7 mg/dL (2.5-4.5); Potassium 3.2 mmol/L (3.4-5.0); Sodium 133 mmol/L (137-145)
[2021-06-26 06:57] LABS: White Blood Count 1.8 K/mm3 (4.5-10.0)
[2021-06-26] MEDS: LORazepam INJ (*CRX) 2 MG/ML VIAL 0.25 MG IV PUSH ×2 (10:38→17:08)
[2021-06-26] MEDS: SODIUM CHLORIDE 0.9% IV 1,000 ML 100 ML IV CONT (10:38)
--- NOTE | 2021-06-26 11:00 | WPDCNINT ---
Assessment and Plan Assessment and plan (1) Shock: Code(s): R57.9 - Shock, unspecified Status: Acute Assessment and Plan: Multifactorial could be related to dehydration secondary to increased nausea, vomiting and unable to keep anything down, solids or liquids, status post chemotherapy, could be related to infection -patient adequately fluid-resuscitated, continue maintenance IV fluids -will give additional fluids this morning as patient is tachycardic, which could be related to hypovolemia, vasopressors, pleural effusion -continue Levophed, maintain MAP > 65 mmHg for adequate end organ perfusion and to prevent end-organ damage -cultures have been obtained and pending -continue cefepime and vancomycin (initiated on 06/25/2021 -lactic acid is normal -continue to monitor urine output, renal function (2) Malignant pleural effusion: Code(s): J91.0 - Malignant pleural effusion Status: Acute Assessment and Plan: Left-sided moderate to large pleural effusion, likely malignant effusion. Patient has had previous thoracentesis -will have IR perform ultrasound-guided thoracentesis which may help her with her breathing -labs have been ordered (3) Dehydration: Code(s): E86.0 - Dehydration Status: Acute Assessment and Plan: Likely related to nausea, vomiting and decreased p.o. intake -most likely resolved as patient has received adequate amount of fluids (4) Syncope and collapse: Code(s): R55 - Syncope and collapse Status: Acute Assessment and Plan: Likely related to hypotension and hypovolemia secondary to increased nausea, vomiting, diarrhea decreased oral intake. -continue to monitor telemetry for any arrhythmia (5) Metastatic primary lung cancer: Code(s): C34.90 - Malignant neoplasm of unspecified part of unspecified bronchus or lung Status: Acute Assessment and Plan: History of metastatic lung cancer with metastases to bones, brain and thyroid -patient recently had a 5th cycle of her chemotherapy on 06/19/2021, follows up with her human resources temp/oncologist at [place] -will have Dr. Richmond see the patient for pancytopenia, patient will benefit from Neupogen (6) Pancytopenia: Code(s): D61.818 - Other pancytopenia Status: Acute Assessment and Plan: Pancytopenia likely related to chemotherapy, could also be related to sepsis and septic shock -continue to monitor (7) Hypokalemia: Code(s): E87.6 - Hypokalemia Status: Acute Assessment and Plan: Will replace potassium and phosphorus Additional Plan DVT prophylaxis: SCDs Discussed with patient updated with her condition and plan of care. I did explain to her that she is on a blood pressure support medication as a blood pressures were low which could have been the cause of for syncope, also dehydration could be the cause of low blood pressures. She is aware that her cultures have been obtained and pending, she is on antibiotics. Code status: Full code Critical care time spent: 47 minutes This dictation may have been done utilizing a voice recognition system. Attempts have been made to correct errors. However, there may be uncorrected grammatical, spelling, and recognition errors present. Due to a high probability of clinically significant, life threatening deterioration, the patient required my highest level of preparedness to intervene emergently and I personally spent this critical care time directly and personally managing the patient. This critical care time included obtaining a history; examining the patient; pulse oximetry; ordering and review of studies; arranging urgent treatment with development of a management plan; evaluation of patient's response to treatment; frequent reassessment; and discussions with other providers. It was exclusive of separately billable procedures and treating other patients and teaching time. Please see Assessment and Plan section
[2021-06-26 11:13] LABS: Albumin Level 2.8 g/dL (3.5-5.1)
[2021-06-26 11:20] LABS: INR 1.2; Prothrombin Time 15.3 Seconds (11.1-14.7)
[2021-06-26] MEDS: hetaSTARCH 6%/NACL 500 ML 250 ML IV CONT (11:31)
[2021-06-26] MEDS: POTASSIUM PHOS,M-BASIC-D-BASIC 20 MMOL in SODIUM CHLORIDE 0.9% IV 250 ML 64.17 MMOL IVPB (11:48)
[2021-06-26] MEDS: NOREPINEPHRINE 8 MG/D5W 250 ML 8 MG/250 ML BAG 3.75 MG IV CONT (15:07)
--- NOTE | 2021-06-26 15:52 | PDONCCN ---
[facility] - Date of Consult Date/Time: 06/26/21 15:52 Requesting Physician: Donita Tavera MD Primary Care Provider: Evin Jhaveri MD - Consult Narrative Reason for consult: Metastatic non-small cell lung cancer Narrative: Alana Solis is a 65 year old female with diagnosis of stage IV metastatic non-small cell lung cancer with malignant pleural effusion. Currently she is on chemotherapy and received 5 cycles of chemotherapy with the last treatment on June 19. She also had her brain metastasis and completed radiation therapy to the brain. She came into the hospital with development of generalized weakness along with nausea vomiting and diarrhea. She was found to be hypotensive and admitted to the ER with Levophed drip was started. She denies any fevers and chills at this time but was experiencing some fever and chills previously. He has poor appetite. Denies any cough. She does have some shortness of breath. CTA chest showed no evidence of PE but there was moderate size left-sided pleural effusion with collapse of the left upper lobe lung due to infiltrate of the left hilar mass. There was innumerable small nodules along with mediastinal lymphadenopathy and L1 vertebral body lytic lesions. Labs showed pancytopenia with WBC of 1.8 and ANC of 900. Hemoglobin was 8.4 and platelets are 69,000. Review of Systems - Review of Systems All systems reviewed & are unremarkable except as noted in [facility] and [facility] Medical History: Medical History (Last Updated 06/25/21 @ 22:38 by Edilma Steward PA-C) Anxiety Coronary artery disease Posterior ME status post angioplasty and bare metal stent to the circumflex on 09/30/2012. Patient has instent restensosis with subsequent drug eluting stent to the circumflex on 02/27/2013. 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 Patient of Dr. Huan Vaughn. Surgical History: Surgical History (Last Updated 06/25/21 @ 22:38 by Edilma Steward PA-C) History of heart artery stent Bare metal stent to the circumflex with instent restenoses since subsequent drug-eluting stent to the same as above. History of tonsillectomy Family History: Family History (Last Reviewed 06/25/21 @ 22:38 by Edilma Steward PA-C) Other Diabetes mellitus Heart disease - Social History Social History: Social History (Last Updated 06/25/21 @ 22:39 by Edilma Steward PA-C) Alcohol Use: Alcohol intake: never Substance Use: Substance use: never Others: Spiritual care concerns: No Smoking Status: Smoking status: Former smoker Smoking end date: 09/29/12 Smoking Pack-years: Smoking packs per day: 1.5 Smoking cigarettes per day: 30.0 Years smoked: 40 Smoking pack-years: 60.00 Meds Home Medications Medication Instructions Recorded Confirmed Type alprazolam 0.25 mg tablet 0.25 mg PO TID PRN 12/22/20 06/25/21 History aspirin 81 mg tablet,delayed 81 mg PO DAILY 12/22/20 06/25/21 History release metoprolol tartrate 75 mg tablet 75 mg PO Q12H 12/22/20 06/25/21 History rosuvastatin 40 mg tablet 40 mg PO DAILY 12/22/20 06/25/21 History isosorbide mononitrate 30 mg PO DAILY 06/25/21 06/25/21 History Allergies Allergy/AdvReac Type Severity Reaction Status Date / Time morphine Allergy Mild Unknown Verified 06/25/21 13:09 codeine Allergy Unknown Unknown Verified 06/25/21 13:09 Results - Labs CBC & Chem 7: 06/26/21 05:50 06/26/21 05:50 Labs: Short CBC 06/26/21 Range/Units 05:50 WBC 1.8 L* (4.5-10.0) K/mm3 Hgb 8.4 L (12.0-15.0) g/dL Hct 26.3 L (37.0-47.0) % Plt Count 69 L (150-375) k/mm3 BMP 06/25/21 06/26/21 22:00 05:50 Sodium 132 L 133 L Pot
[2021-06-26 17:33] LABS: pH Pleural Fluid 7.456 (7.210-7.500)
--- NOTE | 2021-06-26 17:35 | PM.IMPN ---
Progress Note: A&P Assessment and Plan (1) Shock: Code(s): R57.9 - Shock, unspecified Status: Acute Assessment and Plan: Multifactorial could be related to dehydration secondary to increased nausea, vomiting and poor oral intake, status post chemotherapy, could be related to infection -patient adequately fluid-resuscitated, continue maintenance IV fluids -Continue IVl fluids this morning as patient is tachycardic, which could be related to hypovolemia, vasopressors, pleural effusion -continue Levophed, maintain MAP > 65 mmHg for adequate end organ perfusion and to prevent end-organ damage -cultures have been obtained and pending -continue cefepime and vancomycin (initiated on 06/25/2021 -lactic acid is normal -continue to monitor urine output, renal function (2) Malignant pleural effusion: Code(s): J91.0 - Malignant pleural effusion Status: Acute Assessment and Plan: Left-sided moderate to large pleural effusion, likely malignant effusion. Patient has had previous thoracentesis -s/p IR performed ultrasound-guided thoracentesis removing 700 ml o fluid. Follow up pleural fluids labs. (3) Dehydration: Code(s): E86.0 - Dehydration Status: Acute Assessment and Plan: Likely related to nausea, vomiting and decreased p.o. intake -most likely resolved as patient has received adequate amount of fluids (4) Syncope and collapse: Code(s): R55 - Syncope and collapse Status: Acute Assessment and Plan: Likely related to hypotension and hypovolemia secondary to increased nausea, vomiting, diarrhea decreased oral intake. -continue to monitor telemetry for any arrhythmia (5) Metastatic primary lung cancer: Code(s): C34.90 - Malignant neoplasm of unspecified part of unspecified bronchus or lung Status: Acute Assessment and Plan: History of metastatic lung cancer with metastases to bones, brain and thyroid -patient recently had a 5th cycle of her chemotherapy on 06/19/2021, follows up with her nutrition aide/oncologist at [place] -will have Dr. Richmond see the patient for pancytopenia, patient will benefit from filgrastim. (6) Pancytopenia: Code(s): D61.818 - Other pancytopenia Status: Acute Assessment and Plan: Pancytopenia likely related to chemotherapy, could also be related to sepsis and septic shock -continue to monitor. May benefot from filgrastim. (7) Hypokalemia: Code(s): E87.6 - Hypokalemia Status: Acute Assessment and Plan: Will replace potassium and phosphorus Additional Plan DVT prophylaxis: SCDs Subjective Date/time seen: 06/26/21 17:35 Background: Alana Solis is a 65 year old female with significant past medical history of coronary artery disease status post at [facility] to circumflex in 2011 and had InStent restenoses with subsequent PAULA to circumflex in 2012, essential hypertension, metastatic lung cancer to brain, bones and thyroid presented the ED on 06/25/2021 with complains of syncopal episode, along with generalized weakness, nausea, vomiting, diarrhea which started after her 5th cycle of chemotherapy which she received on 06/19/2021. She received 3 L of IV fluids despite which her blood pressures remain low and was started on Levophed. CTA of the chest on admission: No pulmonary embolism identified, moderate size left pleural effusion with significant atelectasis in the left lower lobe and complete collapse of the left upper lobe due to infiltrate hilar mass. Innumerable small nodules scattered throughout, mediastinal lymphadenopathy, lytic lesions of the right scapula and L1 vertebral body consistent with metastatic disease. CT scan of the abdomen and pelvis showed large malignant left pleural effusion, airspace opacities in the left lung consistent with atelectasis and pneumonia, patient was transferred to the ICU for further management S; Patient seen and examined the ICU this morning, is
[2021-06-26 18:33] LABS: Appearance Pleural Fluid Cloudy (Clear); Color Pleural Fluid Red (Colorless); Pleural fluid source Pleural fluid
[2021-06-26 18:34] LABS: Lymphocytes Pleural Fluid 100 %
[2021-06-26] MEDS: METOPROLOL TARTRATE INJ 5 MG/5 ML VIAL 2.5 MG IV PUSH ×2 (18:55→23:30)
[2021-06-26 19:39] LABS: Folic Acid > 20.0 ng/mL (2.76->20); Vitamin B12 > 1000.0 pg/mL (239-931)
[2021-06-26 20:56] LABS: Iron 15 ug/dL (37-170)
[2021-06-26 21:05] LABS: Percent Iron Saturation 9 % (20-50)
[2021-06-26 22:15] LABS: Ferritin > 2000.00 ng/mL (11.1-264)
[2021-06-26 22:26] LABS: Glucose Point of Care 145 mg/dl (65-105)
[2021-06-27] VITALS (26 sets, daily range): BP systolic 92–115; BP diastolic 51–81; PULSE 92–205; RESP 23–85; TEMP 36.7–37.9; O2SAT 85–99
[2021-06-27] MEDS: SODIUM CHLORIDE 0.9% IV 1,000 ML 100 ML IV CONT (01:45)
--- NOTE | 2021-06-27 04:23 | ECG_ITS ---
Measurements Intervals [place] Rate: 232 P: UT: 0 QRS: -30 QRSD: 199 T: 0 QT: 190 QTc: 374 Interpretive Statements SUPRAVENTRICULAR TACHYCARDIA ST-T WAVE ABNORMALITY IN ANTEROLAT/HIGH LAT LEADS- CONSIDER ISCHEMIA OR RATE RELATED BASELINE WANDER- V5 ABNORMAL ECG Electronically Signed On 06-27-2021 17:07:39 CDT by Isaac Howard D.O.
[2021-06-27] MEDS: AMIODARONE 360 MG/D5W 200 ML 360 MG/200 ML BAG 33.33 MG IV CONT (04:30)
[2021-06-27 04:49] LABS: Hemoglobin 7.9 g/dL (12.0-15.0); Immature Platelet Fraction Pct 4.5 % (0.9-11.2); Mean Corpuscular HGB Conc 31.6 g/dl (32-36); Mean Corpuscular Volume 95.1 fl (80-100); Mean Platelet Volume 10.3 fl (7.4-10.4); Platelet Count Result 46 k/mm3 (150-375); Red Blood Count 2.63 M/mm3 (4.2-5.4); Red Cell Distribution Width 22.5 % (11.5-14.5)
--- NOTE | 2021-06-27 04:49 | ECG_ITS ---
Measurements Intervals [place] Rate: 115 P: 32 MI: 129 QRS: 39 QRSD: 91 T: 39 QT: 252 QTc: 349 Interpretive Statements SINUS TACHYCARDIA LOW QRS VOLTAGE IN LIMB LEADS BASELINE ARTIFACT- I, II, III, AVR, AVL, AVF, V1 ABNORMAL ECG Electronically Signed On 06-27-2021 8:57:05 CDT by Isaac Howard D.O.
[2021-06-27] MEDS: ADENOSINE IV SOLN 6 MG/2 ML VIAL (04:53)
[2021-06-27] MEDS: FUROSEMIDE INJ 40 MG/4 ML VIAL IV PUSH (04:54)
[2021-06-27 05:08] LABS: Lactic Acid Reflex 1.3 mmol/L (0.7-2.1); Magnesium 1.6 mg/dL (1.6-2.3)
[2021-06-27 05:28] LABS: Alanine Aminotransferase 19 U/L (4-35); Albumin Level 2.6 g/dL (3.5-5.1); Alkaline Phosphatase 64 U/L (38-126); Anion Gap 7 mmol/L (8-16); Aspartate Amino Transferase 37 U/L (14-36); Bilirubin,Total 0.3 mg/dL (0.2-1.3); Blood Urea Nitrogen 6 mg/dL (7-17); Calcium 7.9 mg/dL (8.4-10.2); Carbon Dioxide 26 mmol/L (22-30); Chloride 103 mmol/L (98-107); Estimated CRCL calculation 96 ml/min; Estimated Glomerular Filt Rate > 60; Glucose 115 mg/dL (65-110); Phosphorus 2.8 mg/dL (2.5-4.5); Potassium 2.7 mmol/L (3.4-5.0); Sodium 136 mmol/L (137-145)
[2021-06-27] MEDS: MAGNESIUM SULF 2 GM/WATER 50ML 2 GM/50 ML BAG IVPB (05:49)
[2021-06-27] MEDS: CENTRAL LINE FLUSH 10 ML IV PUSH ×4 (05:56→21:50)
--- NOTE | 2021-06-27 06:03 | PC.NURSE ---
Pt went into SVT at approximately 0409. HR 220-230. Dr. Forrester notified and came to pt bedside. Per MD order, Adenosine 6 mg IVP administered at 0415 for a HR in the 220s. 0418-amiodarone 300 mg IVP administered for HR 197. 0433-amiodarone 150 mg IVP administered HR 205. Amiodarone gtt started. Pt's HR improved. See MAR and VS. Pt states that she would want CPR, but does not believe she would want to be intubated. Spoke with pt's son, Micheal. He also believes that he would want her to have CPR but no intubation. Micheal is going to speak with his sister and call back with a decision on whether or not they want the pt to be a modified code. Pt agreeable to this.
--- NOTE | 2021-06-27 06:12 | PM.EVENT ---
Event Note Event Note Event Note: I was called to patient's bedside due to heart rate in the 200s upon arrival to patient's room crash cart was at patient's bedside patient's blood pressure was 117/82 patient was in mild respiratory distress saturating in the 80s. Initially she was given Thomas no seen 6 mg IV push well chest slowed down the rhythm but immediately went back to the 200's proceeded to give amiodarone push 300 mg IV which slowed down the rhythm to the 140's and a amiodarone drip was started eventually patient's heart rate went back to the 200's she was placed on non-rebreather and another 150 mg of amiodarone was pushed this time heart rate stayed in the 100 and teens, chest pads were in place. Patient was awake and alert repeat chest x-ray showed left-sided whiteout lung right-sided edema. Proceeded to place patient on BiPAP an order Lasix 40 mg IV push, Urr[place]ia catheter in progress to be placed blood pressure remained stable. Further discussion regarding disposition and advanced directives in progress. Initial EKG showed supraventricular tachycardia repeat EKG after amiodarone and adenosine showed atrial fibrillation.
[2021-06-27] MEDS: METOPROLOL TARTRATE INJ 5 MG/5 ML VIAL 2.5 MG IV PUSH (06:47)
[2021-06-27 08:25] LABS: Glucose Point of Care 126 mg/dl (65-105)
[2021-06-27 09:19] LABS: Vancomycin Trough 12.7 ug/mL (10.0-20.0)
--- NOTE | 2021-06-27 09:24 | PM.CNCAR ---
Assessment and Plan Assessment and plan (1) PSVT (paroxysmal supraventricular tachycardia): Code(s): I47.1 - Supraventricular tachycardia Status: Acute Assessment and Plan: H/O PSVT w/ recurrence last night, very fast HR 200, resolved w/ IV amiodarone. Rec cont amiodarone for now; if and when she recovers can resumeher metoprolol. Hold the IV metoprolol since her BP is soft and the amiodarone should prevent recurrence. (2) PAF (paroxysmal atrial fibrillation): Code(s): I48.0 - Paroxysmal atrial fibrillation Status: Acute Assessment and Plan: PSVT degenerated into a fib RVR inthe setting of actue illness. No prior h/o a fib. Currently in NSR on IV amiodarone. Cont same. No anticoagulation 2nd thrombocytopenia. (3) Acute diastolic CHF (congestive heart failure): Code(s): I50.31 - Acute diastolic (congestive) heart failure Status: Acute Assessment and Plan: Right lung does look like CHF on today's CXR, prob 2nd tachcardia and fluids. Echo 06/03/2021 showed EF 60-65%, LVH and no pericardial effusion. Given one dose IV Lasix, now off BiPAP. CXR in a.m. (4) Shock: Code(s): R57.9 - Shock, unspecified Status: Acute Assessment and Plan: Improved after IV fluid resuscitation. OPn antibiotics. SEvere hypokalemia addressed. (5) Pancytopenia: Code(s): D61.818 - Other pancytopenia Status: Acute (6) Metastatic primary lung cancer: Code(s): C34.90 - Malignant neoplasm of unspecified part of unspecified bronchus or lung Status: Acute (7) Coronary artery disease: Qualifiers: Coronary Disease-Associated Artery/Lesion type: ramona artery [place] vs. transplanted heart: ramona heart Associated angina: without angina Qualified Code(s): I25.10 - Atherosclerotic heart disease of ramona coronary artery without angina pectoris Code(s): I25.10 - Atherosclerotic heart disease of ramona coronary artery without angina pectoris Status: Acute Assessment and Plan: Stable. Currently off her ASA, etc. History of Present Illness History of Present Illness Consult date/time: 06/27/21 09:24 Requesting physician: Johnny Suazo MD Reason For Visit: adenikepancytopenic Narrative: DAte of Service: 06/27/2021 Alana Solis is an unfortunate 65 w.o. WF whom I follow for her CAD. She was found to have stage IV non-small cell lung cancer 11/2020. I saw her last week and she was having a lot of N&V 2nd recent chemo. She was admited w/ syncope, hypotension and shock. I was asked to see her at the request of Dr. Suazo for my advise and opinion regarding her SVT and PAF, in consultation. Pt has a h/o posterior DC and a CX stent in 2011; repeat stenting for in-stent restenosis 2012. H/O PSVT tx'd w/ metoprolol. The patient is in the ICU, on antibiotics and her levophed was discontinued yesterday. She had a thoracentesis yesterday, removing 700 cc's fluid. Around 4 a.m. the pt sent into an SVT rate 200. She was given adenocard which slowed the rate transiently, then amiodarone boluses. She then went into a fib. She was placed on BIPAP. Subsequently she has gone back into NSR. She was given Lasix IVP for CHF on CXR andmetoprolol 2.5 mg IVP q 6 Hrs. She admits to CP this a.m. when she had the tachycardia, and chronic SOB. Review of Systems Constitutional: Constitutional: Reports fatigue, Reports lethargy and Reports weakness Eyes: Eyes: Reports no additional eye complaints ENT: Denies epistaxis Cardiovascular: Cardiovascular: Reports chest pain, Denies pedal edema, Denies leg edema, Denies lightheadedness and Reports palpitations Respiratory: Respiratory: Reports cough, Denies hemoptysis, Reports dyspnea and Reports dyspnea on exertion Gastrointestinal: Gastrointestinal: Denies abdominal p
--- NOTE | 2021-06-27 09:36 | ECHO_ITS ---
Patient Info Name: Alana Solis Age: 65 years : 1955 Gender: Female Ht: 69 in Wt: 180 lbs BSA: 2.01 m2 HR: 111 bpm BP: 92 / 72 mmHg Heart Rhythm: Sinus Rhythm, Tachycardia Technical Quality: Poor Exam Date: 06/27/2021 1:12 PM Exam Location: [facility] Pulmonary Patient Status: Inpatient Admit Date: 06/25/2021 Staff Ordering Physician: Johnny Suazo MD Core Winder: Jenni Lynn RDCS Attending Provider: Donita Tavera MD Referring Physician: Gabriele MARTINEZ; Exam Type: CA echo dop color flow w con Study Info Complete two-dimensional, color flow and Doppler transthoracic echocardiogram is performed with contrast to opacify the left ventricle and to improve the deliniation of the left ventricle endocardial borders. Contrast/Agitated Saline Contrast/Ag. Saline: Definity Amount: --- ml Summary 1. Normal left ventricular size with borderline concentric hypertrophy. Good systolic function of all segments with a calculated ejection fraction of 62%. No segmental wall motion abnormalities. Grade 2 diastolic dysfunction is present. 2. No pulmonary hypertension, estimated pulmonary arterial systolic pressure is 34 mmHg. 3. There is trace tricuspid valve regurgitation. 4. There is no pericardial effusion. 5. Sinus tachycardia. Left Ventricle Left ventricular chamber dimension is normal. Left ventricular systolic function is normal, estimated at 60-65%. There is mildly increased left ventricular wall thickness. Left ventricular septal wall motion is normal. The left ventricular diastolic function is grade II diastolic dysfunction. Right Ventricle Right ventricular chamber dimension is normal. Right ventricular systolic function is normal. Left Atria Left atrial chamber dimension is normal. Right Atria Right atrial chamber dimension is normal. Aortic Valve The aortic valve is trileaflet. There is no aortic valve sclerosis. There is no aortic valve stenosis. There is no aortic valve regurgitation. Pulmonic Valve The pulmonic valve is normal. There is no pulmonic valve stenosis. There is no pulmonic regurgitation. Mitral Valve The mitral valve has normal leaflets. There is no mitral valve stenosis. There is no mitral valve regurgitation. Tricuspid Valve The tricuspid valve leaflets are normal. There is no significant tricuspid valve stenosis. There is trace tricuspid valve regurgitation. No pulmonary hypertension, estimated pulmonary arterial systolic pressure is 34 mmHg. Pericardium/Pleural The pericardium appears normal. There is no pericardial effusion. Inferior Vena Cava Normal inferior vena cava with >50% collapse upon inspiration consistent with Empty right atrial pressure, 10 mmHg. Aorta The aortic root size at the sinus of Valsalva is normal. The prox ascending aorta size is normal. Left Ventricular Outflow Tract Name Value Normal LVOT Doppler LVOT Peak Gradient 5 mmHg LVOT Mean Gradient 3 mmHg LVOT VTI 18.18 cm LVOT VTI/AV VTI Ratio 0.78 Pulmonic Valve
[2021-06-27] MEDS: AMIODARONE 360 MG/D5W 200 ML 360 MG/200 ML BAG 16.67 MG IV CONT ×2 (10:05→21:50)
[2021-06-27] MEDS: POTASSIUM CHLORIDE 20 MEQ PACKET (FOR LIQUID) 40 MEQ PO (10:53)
--- NOTE | 2021-06-27 12:17 | PM.IMPN ---
Progress Note: A&P Assessment and Plan (1) Shock: Code(s): R57.9 - Shock, unspecified Status: Acute Assessment and Plan: Multifactorial could be related to dehydration secondary to increased nausea, vomiting and poor oral intake, status post chemotherapy, could be related to infection -Levo is off; improving. -Atrial fibrillation with rapid ventricular response on amiodarone drip after amiodarone 30 mg IV then 150 mg IV. Monitor electrolytes. Keep K/Mag around 4/2. -patient adequately fluid-resuscitated, continue maintenance IV fluids -Blood cultures preliminary reports are negative. -Continue cefepime and vancomycin (initiated on 06/25/2021 -lactic acid is normal -continue to monitor urine output, renal function (2) Malignant pleural effusion: Code(s): J91.0 - Malignant pleural effusion Status: Acute Assessment and Plan: Left-sided moderate to large pleural effusion, likely malignant effusion. Patient has had previous thoracentesis -s/p IR performed ultrasound-guided thoracentesis removing 700 ml o fluid. Follow up pleural fluids labs. daily chest Xray. (3) Dehydration: Code(s): E86.0 - Dehydration Status: Acute Assessment and Plan: Likely related to nausea, vomiting and decreased p.o. intake -most likely resolved as patient has received adequate amount of fluids (4) Syncope and collapse: Code(s): R55 - Syncope and collapse Status: Acute Assessment and Plan: Likely related to hypotension and hypovolemia secondary to increased nausea, vomiting, diarrhea decreased oral intake. -continue to monitor telemetry for any arrhythmia (5) Metastatic primary lung cancer: Code(s): C34.90 - Malignant neoplasm of unspecified part of unspecified bronchus or lung Status: Acute Assessment and Plan: History of metastatic lung cancer with metastases to bones, brain and thyroid -patient recently had a 5th cycle of her chemotherapy on 06/19/2021, follows up with her dining services director/oncologist at [place] - Dr. Richmond no indication for filgrastim as wbc is improving. (6) Pancytopenia: Code(s): D61.818 - Other pancytopenia Status: Acute Assessment and Plan: Pancytopenia likely related to chemotherapy, could also be related to sepsis and septic shock -continue to monitor. wbc improving (7) Hypokalemia: Code(s): E87.6 - Hypokalemia Status: Acute Assessment and Plan: Will replace potassium. check K, Mag, phos twice daily. Additional Plan DVT prophylaxis: SCDs Subjective Date/time seen: 06/27/21 12:17 overnight patint tachycardic in the 200s; no response to adenosine push; given amiodarone 300 mg then 150 mg IV. EKG: atrial firbillation. Cardology consulted. HIstory of SVT now atrial fibrillation in the setting of acute illness. Continue amiodarone drip. S: Patient was examined at the bedside. She is somnolent. There was no evidence of distress. She is being ventilated on the BiPAP: AVAPS settings EPAP 8 TV 600 r 26 I time 1.00 fi O 2 40% Review of Systems Review of Systems: Cannot be obtained as patient is somnolent. Constitutional: Constitutional: Denies headache(s) ENT: Denies headache(s) Cardiovascular: Cardiovascular: Reports dyspnea Gastrointestinal: Gastrointestinal: Denies dysphagia and Reports diarrhea Musculoskeletal: Musculoskeletal: Denies numbness Neurologic: Reports weakness Endocrine: Endocrine: Reports fatigue Allergic/Immunologic: Allergic/Immunologic: Denies wheezing Exam Narrative: General: Moderately ill-appearing female supine in bed. Weight: 86.4 kg. BMI: 28.1. BiPAP: S/T mode; 18/6; R 13; O2 70%; I time 0.80; Rise 5. HEENT: PERRL, EOMI. Sclerae anicteric. Moist mucous membranes. Oropharynx clear. Neck: Supple. No JVD. Central line in the left IJ. Respiratory: Patient is tolerating BiPAP. Cardiovascular: irregularly irregular rate and rhythm with S1-S2. Gastrointestinal
[2021-06-27 13:09] LABS: Anion Gap 6 mmol/L (8-16); Blood Urea Nitrogen 9 mg/dL (7-17); Calcium 7.7 mg/dL (8.4-10.2); Carbon Dioxide 27 mmol/L (22-30); Chloride 98 mmol/L (98-107); Estimated CRCL calculation 65 ml/min; Estimated Glomerular Filt Rate > 60; Glucose 156 mg/dL (65-110); Potassium 3.9 mmol/L (3.4-5.0); Sodium 131 mmol/L (137-145)
--- NOTE | 2021-06-27 15:19 | WPDINTPN ---
Progress Note: A&P Assessment and Plan (1) PSVT (paroxysmal supraventricular tachycardia): Code(s): I47.1 - Supraventricular tachycardia Status: Acute Assessment and Plan: Patient does have a history of PSVT, resolved with amiodarone will continue amiodarone for now Appreciate urology evaluation recommendation. -holding metoprolol since blood pressures is soft -will check TSH level (2) PAF (paroxysmal atrial fibrillation): Code(s): I48.0 - Paroxysmal atrial fibrillation Status: Acute Assessment and Plan: Patient with paroxysmal AFib, cardiology following the patient -continue amiodarone for now -patient not a candidate for full anticoagulation given her thrombocytopenia with a platelet count of 46 (3) Shock: Code(s): R57.9 - Shock, unspecified Status: Acute Assessment and Plan: RESOLVED, OFF LEVOPHED OF 06/26/2021 EVENING Multifactorial could be related to dehydration secondary to increased nausea, vomiting and unable to keep anything down, solids or liquids, status post chemotherapy, could be related to infection Patient started taking p.o., hold maintenance IV fluids -06/26/2021: Blood cultures negative x2 so far -06/27/2021: Urine cultures pending -pleural fluid cultures pending, Gram stain is negative -continue cefepime and vancomycin (initiated on 06/25/2021) -lactic acid is normal -continue to monitor urine output, renal function (4) Malignant pleural effusion: Code(s): J91.0 - Malignant pleural effusion Status: Acute Assessment and Plan: Left-sided moderate to large pleural effusion, likely malignant effusion. Patient has had previous thoracentesis -appreciate Interventional Radiology performing ultrasound-guided thoracentesis with removal of 700 mL of margarita colored fluid -cultures are pending, Gram stain is negative -pulmonology has been consulted (5) Dehydration: Code(s): E86.0 - Dehydration Status: Acute Assessment and Plan: Likely related to nausea, vomiting and decreased p.o. intake -most likely resolved as patient has received adequate amount of fluids (6) Syncope and collapse: Code(s): R55 - Syncope and collapse Status: Acute Assessment and Plan: Likely related to hypotension and hypovolemia secondary to increased nausea, vomiting, diarrhea decreased oral intake. -continue to monitor telemetry for any arrhythmia (7) Metastatic primary lung cancer: Code(s): C34.90 - Malignant neoplasm of unspecified part of unspecified bronchus or lung Status: Acute Assessment and Plan: History of metastatic lung cancer with metastases to bones, brain and thyroid -patient recently had a 5th cycle of her chemotherapy on 06/19/2021, follows up with her iron worker foreman/oncologist at [place] -appreciate Dr. Richmond evaluating the patient, (8) Pancytopenia: Code(s): D61.818 - Other pancytopenia Status: Acute Assessment and Plan: Pancytopenia likely related to chemotherapy, could also be related to sepsis and septic shock -continue to monitor (9) Hypokalemia: Code(s): E87.6 - Hypokalemia Status: Acute Assessment and Plan: Resolved Additional Plan DVT prophylaxis: SCDs Discussed with patient updated with her condition and plan of care. Code status: Full code Critical care time spent: 33 minutes This dictation may have been done utilizing a voice recognition system. Attempts have been made to correct errors. However, there may be uncorrected grammatical, spelling, and recognition errors present. Due to a high probability of clinically significant, life threatening deterioration, the patient required my highest level of preparedness to intervene emergently and I personally spent this critical care time directly and personally managing the patient. This critical care time included obtaining a history; examining the patient; pulse oximetry; ordering and review
--- NOTE | 2021-06-27 17:03 | PM.CNPUL ---
Assessment and Plan Assessment and plan (1) Malignant pleural effusion: Code(s): J91.0 - Malignant pleural effusion Status: Acute Assessment and Plan: She has a malignant pleural effusion due to metastatic lung cancer with metastases to bones - lytic lesions of the right scapula and L1 vertebral body, brain and thyroid She had a recent 5th cycle of her chemotherapy on 06/19/2021, followed by Dr Vaughn civil division deputy sheriff/oncologist at [facility] She does not want to have a repeat thoracentesis. Her shortness of breath is acceptable, improved, not at the point that she wants intervention. She may be a candidate for a PleurX catheter for symptomatic relief of dyspnea. I told her that although this may help, this is a decision for her oncologist to discuss with her. We do not have all her records, and we do not offer this at [facility]. She uses O2 at home, 3 L/min, now requiring more O2 using High flow nasal cannula. She wants to go to her son's wedding Jul 26, however will need to have the effusion tapped at least once before then. I will attempt to contact her oncologist to ask for more information. (2) Metastatic primary lung cancer: Code(s): C34.90 - Malignant neoplasm of unspecified part of unspecified bronchus or lung Status: Acute Assessment and Plan: see above (3) Acute on chronic respiratory failure with hypoxemia: Code(s): J96.21 - Acute and chronic respiratory failure with hypoxia Status: Acute Assessment and Plan: She is requiring more O2 comparedto her home O2 flow which is 3 L/min. She was admitted needing 3 L/min, then required BiPAP and now high flow. Tapping left pleural effusion myah improve VQ matching, however she has a large amount of lung tissue with compression due to the effusion. After a thoracentesis when the compressed lung expands, transient worsening of O2 saturation may occur as this tissue is atelectatic with shunting of blood to the right lung. 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 She was admitted with shock, pancytopenia from chemo, required Levophed briefly on 06/26; had a left thoracentesis 06/26 with removal of 700 ml fluid, followed by PSVT, treated with amiodarone. She has new atrial fibrillation. initially she was on nasal canula O2 at 2-3 L/min, then required BiPAP, switched to high flow nasal cannula with amount of O2 being adjusted as her saturation varies. She has been transferred out of ICU today, is on AirVo, says that she does not want a thoracentesis today or tomorrow, at least for a few weeks due to the arrhythmia and dyspnea that she just experienced. She feels better today 06/28 compared to yesterday, transferred to IMU. She has not had an ABG at this hospital. She had pancytopenia, hyponatremia Na+ 131, low potassium down to 2.7, normal renal function. Pleural fluid 06/26 shows pH 7.456, excessive numbers of RBC, wbc, and 100% lymphocytes. This is a bloody lymphocytic effusion consistent with malignancy. The pH is normal, suggests she does not have an infected pleural space. DATA * 06/27/2021 CXR Near complete opacification of the left hemithorax consistent with enlarging left pleural effusion and likely combination of atelectasis and pneumonia. 2. Reticulonodular pattern throughout the right lung suspicious for metastatic disease and could not exclude superimposed mild pulmonary edema. Review of Syst
[2021-06-27 18:12] LABS: Glucose Point of Care 111 mg/dl (65-105)
[2021-06-27 19:07] LABS: Add Urine Microscopic? YES; Amorphous Sediment Urine Few; Appearance Urine Cloudy (Clear); Bacteria Urine Trace /hpf; Bilirubin Urine Negative (Negative); Blood Urine 2+ (Negative); Color Urine Yellow (Yellow); Glucose Urine UA Negative (Negative); Ketones Urine Negative (Negative); Leukocyte Esterase Ur Negative LEU/UL (NEGATIVE); Mucus Urine Heavy /lpf; Nitrate Urine Negative (Negative); Protein Urine 2+ mg/dL (Negative); Specific Grav Ur 1.023 (1.001-1.035); Squamous Epithelial Cell Urine Few /hpf (Few); Urobilinogen Urine Negative mg/dL (<2.0); WBC Urine 0-3 /hpf (0-3)
[2021-06-28] VITALS (18 sets, daily range): BP systolic 93–114; BP diastolic 52–79; PULSE 78–105; RESP 18–29; TEMP 36–37.1; O2SAT 90–97
[2021-06-28] MEDS: CENTRAL LINE FLUSH 10 ML IV PUSH ×4 (05:47→23:11)
[2021-06-28 06:16] LABS: Hematocrit 23.7 % (37.0-47.0); Hemoglobin 7.5 g/dL (12.0-15.0); Immature Platelet Fraction Pct 7.7 % (0.9-11.2); Mean Corpuscular HGB Conc 31.6 g/dl (32-36); Mean Corpuscular Volume 94.8 fl (80-100); Mean Platelet Volume 10.5 fl (7.4-10.4); Platelet Count Result 59 k/mm3 (150-375); Red Cell Distribution Width 22.4 % (11.5-14.5); White Blood Count 2.1 K/mm3 (4.5-10.0)
[2021-06-28 06:25] LABS: Alanine Aminotransferase 26 U/L (4-35); Albumin Level 2.7 g/dL (3.5-5.1); Alkaline Phosphatase 67 U/L (38-126); Anion Gap 3 mmol/L (8-16); Aspartate Amino Transferase 47 U/L (14-36); Bilirubin,Total 0.4 mg/dL (0.2-1.3); Blood Urea Nitrogen 10 mg/dL (7-17); Calcium 7.9 mg/dL (8.4-10.2); Carbon Dioxide 29 mmol/L (22-30); Chloride 99 mmol/L (98-107); Estimated CRCL calculation 74 ml/min; Estimated Glomerular Filt Rate > 60; Glucose 107 mg/dL (65-110); Phosphorus 2.9 mg/dL (2.5-4.5); Potassium 3.4 mmol/L (3.4-5.0); Sodium 131 mmol/L (137-145)
--- NOTE | 2021-06-28 08:36 | ECG_ITS ---
Measurements Intervals [place] Rate: 93 P: 21 NM: 126 QRS: 24 QRSD: 94 T: 7 QT: 375 QTc: 469 Interpretive Statements SINUS RHYTHM WITH SHORT NM INTERVAL BORDERLINE ST-T WAVE ABNORMALITY- INFERIOR LEADS BASELINE ARTIFACT- I, II, AVR, AVF, V5 BORDERLINE ECG Electronically Signed On 06-28-2021 12:17:15 CDT by Isaac Howard D.O.
[2021-06-28] MEDS: AMIODARONE 360 MG/D5W 200 ML 360 MG/200 ML BAG 16.67 MG IV CONT (08:52)
[2021-06-28] MEDS: POTASSIUM CHLORIDE 20 MEQ PACKET (FOR LIQUID) 40 MEQ PO ×2 (08:52→17:07)
[2021-06-28 10:16] LABS: Magnesium 1.8 mg/dL (1.6-2.3)
--- NOTE | 2021-06-28 11:46 | WPDINTPN ---
Progress Note: A&P Assessment and Plan (1) PSVT (paroxysmal supraventricular tachycardia): Code(s): I47.1 - Supraventricular tachycardia Status: Acute Assessment and Plan: Patient does have a history of PSVT, resolved with amiodarone. -continue amiodarone for now Appreciate cardiology evaluation recommendation. -holding metoprolol since blood pressures is soft -TSH within normal limits (2) PAF (paroxysmal atrial fibrillation): Code(s): I48.0 - Paroxysmal atrial fibrillation Status: Acute Assessment and Plan: Patient with paroxysmal AFib, cardiology following the patient -continue amiodarone for now -patient not a candidate for full anticoagulation given her thrombocytopenia (3) Shock: Code(s): R57.9 - Shock, unspecified Status: Acute Assessment and Plan: RESOLVED, OFF LEVOPHED OF 06/26/2021 EVENING Multifactorial could be related to dehydration secondary to increased nausea, vomiting and unable to keep anything down, solids or liquids, status post chemotherapy, could be related to infection Patient started taking p.o., hold maintenance IV fluids -06/26/2021: Blood cultures negative x2 so far -06/27/2021: Urine cultures - -pleural fluid cultures no growth -pleural fluid Gram stain: No organisms with seen -continue cefepime and vancomycin (initiated on 06/25/2021) -lactic acid is normal -continue to monitor urine output, renal function (4) Malignant pleural effusion: Code(s): J91.0 - Malignant pleural effusion Status: Acute Assessment and Plan: Left-sided moderate to large pleural effusion, likely malignant effusion. Patient has had previous thoracentesis -appreciate Interventional Radiology performing ultrasound-guided thoracentesis with removal of 700 mL of margarita colored fluid -cultures are pending, Gram stain is negative -pulmonology has been consulted (5) Dehydration: Code(s): E86.0 - Dehydration Status: Acute Assessment and Plan: Likely related to nausea, vomiting and decreased p.o. intake -most likely resolved as patient has received adequate amount of fluids (6) Syncope and collapse: Code(s): R55 - Syncope and collapse Status: Acute Assessment and Plan: Likely related to hypotension and hypovolemia secondary to increased nausea, vomiting, diarrhea decreased oral intake. -continue to monitor telemetry for any arrhythmia (7) Metastatic primary lung cancer: Code(s): C34.90 - Malignant neoplasm of unspecified part of unspecified bronchus or lung Status: Acute Assessment and Plan: History of metastatic lung cancer with metastases to bones, brain and thyroid -patient recently had a 5th cycle of her chemotherapy on 06/19/2021, follows up with her planning coordinator/oncologist at [place] -appreciate Dr. Richmond evaluating the patient, (8) Pancytopenia: Code(s): D61.818 - Other pancytopenia Status: Acute Assessment and Plan: Pancytopenia likely related to chemotherapy, could also be related to sepsis and septic shock -continue to monitor (9) Hypokalemia: Code(s): E87.6 - Hypokalemia Status: Acute Assessment and Plan: Will replace potassium Additional Plan DVT prophylaxis: SCDs Discussed with patient updated with her condition and plan of care. Code status: Full code Critical care time spent: 32 minutes Patient will be transferred out of the ICU today This dictation may have been done utilizing a voice recognition system. Attempts have been made to correct errors. However, there may be uncorrected grammatical, spelling, and recognition errors present. Due to a high probability of clinically significant, life threatening deterioration, the patient required my highest level of preparedness to intervene emergently and I personally spent this critical care time directly and personally managing the patient. This critical care time included obtaining a
--- NOTE | 2021-06-28 12:37 | PM.PNCARD ---
Progress Note: A&P Assessment and Plan (1) PSVT (paroxysmal supraventricular tachycardia): Code(s): I47.1 - Supraventricular tachycardia Status: Acute Assessment and Plan: History of PSVT, with an episode early yesterday morning, no recurrence on IV amiodarone. Since her blood pressure still soft and we cannot resume her metoprolol I will continue her amiodarone, probably short term. Change IV to p.o. amiodarone (2) PAF (paroxysmal atrial fibrillation): Code(s): I48.0 - Paroxysmal atrial fibrillation Status: Acute Assessment and Plan: PSVT degenerated into new onset atrial fibrillation yesterday morning. Hopefully will not recur her on p.o. amiodarone Not a candidate for anticoagulation secondary to thrombocytopenia. (3) Acute diastolic CHF (congestive heart failure): Code(s): I50.31 - Acute diastolic (congestive) heart failure Status: Acute Assessment and Plan: Chest x-ray suggests some volume overload/CHF. Had fluid resuscitation on admission.Cumulative I/O = 12,000/4800 cc's IV fluid discontinued. Try adding furosemide 40 mg po daily to see if BP tolerates mild diuresis. Check a.m. Pro-BNP (4) Shock: Code(s): R57.9 - Shock, unspecified Status: Acute Assessment and Plan: Resolved. Cultures neg. (5) Metastatic primary lung cancer: Code(s): C34.90 - Malignant neoplasm of unspecified part of unspecified bronchus or lung Status: Acute Assessment and Plan: Followed by Dr. Vaughn. (6) Pancytopenia: Code(s): D61.818 - Other pancytopenia Status: Acute (7) Coronary artery disease: Qualifiers: Coronary Disease-Associated Artery/Lesion type: [place] artery [place] vs. transplanted heart: [place] heart Associated angina: without angina Qualified Code(s): I25.10 - Atherosclerotic heart disease of [place] coronary artery without angina pectoris Code(s): I25.10 - Atherosclerotic heart disease of [place] coronary artery without angina pectoris Status: Acute Assessment and Plan: STable. Subjective Date/time seen: 06/28/21 12:37 Interval history: Follow-up for paroxysmal atrial fibrillation, PSVT, diastolic CHF. Admitted with shock, pancytopenia, and history of stage IV lung cancer. Transient on Levophed, had thoracentesis 06/26/2021. Date of service 06/28/2021: No further arrhythmias. Improving, now on high-flow oxygen. STill very SOB w/ activity, eating. BP soft but stable, 93-107/60-70 mmHg. I's and O's yesterday: 4000/2400 cc's. Says her #1 priority is to attend her son's wedding Jul 26; she will ask Dr. Vaughn for skip her chemo in Jun hoping she will be in better shape for the wedding. Review of Systems Constitutional: Constitutional: Reports fatigue, Reports lethargy and Reports weakness Eyes: Eyes: Reports no additional eye complaints ENT: Denies epistaxis Cardiovascular: Cardiovascular: Denies chest pain, Denies pedal edema, Denies leg edema and Denies palpitations Respiratory: Respiratory: Denies cough, Reports dyspnea and Reports dyspnea on exertion Gastrointestinal: Gastrointestinal: Denies abdominal pain, Denies diarrhea and Denies nausea Genitourinary: Genitourinary: Denies hematuria Musculoskeletal: Musculoskeletal: Reports no additional musculoskeletal complaints Integumentary/Breasts: Skin/Breast: Reports system reviewed and no additional complaints, except as docu Neurologic: Reports system reviewed and no additional complaints, except as documented Psychiatric: Psychiatric: Reports no additional psychiatric complaints Exam Narrative: Pleasant alert WF who looks a little tachypnec and ill. Const: General: no acute distress and uncomfortable HENMT: Mouth: Yes moist mucous membranes Eyes: EOM: EOMs intact bilaterally Neck: Nec
--- NOTE | 2021-06-28 13:33 | PC.NURSE ---
This patient, Alana Solis, was transferred to [ imu [id number] ] on 06/28/21 at 1333. Personal belongings sent with patient. Report given to [brody ball rn ]. Appropriate documentation sent with patient.
--- NOTE | 2021-06-28 13:53 | PM.IMPN ---
Progress Note: A&P Assessment and Plan (1) Shock: Code(s): R57.9 - Shock, unspecified Status: Acute Assessment and Plan: Multifactorial could be related to dehydration secondary to increased nausea, vomiting and poor oral intake, status post chemotherapy, could be related to infection -Hypotensive requiring pressors at presentation. Currently levo is off as of 06/26 evening; She is hemodynamically stable and improving. -History of PSVT. Yesterday she experienced atrial fibrillation with rapid ventricular response, was started on amiodarone drip after amiodarone 300 mg IV then 150 mg IV. She is currently back to normal sinus rhythm. BP remains soft; patient to remain on oral amiodarone for now. -patient adequately fluid-resuscitated, continue maintenance IV fluids -Blood and urine culture remain negative. -Pleural fluid cultures no growth -pleural fluid Gram stain: No organisms with seen -Continue cefepime and vancomycin (initiated on 06/25/2021) -lactic acid is normal -continue to monitor urine output, renal function (2) Malignant pleural effusion: Code(s): J91.0 - Malignant pleural effusion Status: Acute Assessment and Plan: Left-sided moderate to large pleural effusion, likely malignant effusion. Patient has had previous thoracentesis -s/p IR performed ultrasound-guided thoracentesis removing 700 ml o fluid.Daily chest Xray. -cultures are pending, Gram stain is negative -pulmonology has been consulted. -REpeat chest Xray 06/28/2021: complete opacification of the left hemithorax consistent with large left pleural effusion and associated atelectasis, cannot exclude underlying pneumonia or malignancy. Repeat thoracentesis. (3) Dehydration: Code(s): E86.0 - Dehydration Status: Acute Assessment and Plan: Likely related to nausea, vomiting and decreased p.o. intake -most likely resolved as patient has received adequate amount of fluids (4) Syncope and collapse: Code(s): R55 - Syncope and collapse Status: Acute Assessment and Plan: Likely related to hypotension and hypovolemia secondary to increased nausea, vomiting, diarrhea decreased oral intake. -continue to monitor telemetry for any arrhythmia (5) Metastatic primary lung cancer: Code(s): C34.90 - Malignant neoplasm of unspecified part of unspecified bronchus or lung Status: Acute Assessment and Plan: History of metastatic lung cancer with metastases to bones, brain and thyroid -patient recently had a 5th cycle of her chemotherapy on 06/19/2021, follows up with her personal investment adviser/oncologist at [facility] - Dr. Richmond no indication for filgrastim as wbc is improving. (6) Pancytopenia: Code(s): D61.818 - Other pancytopenia Status: Acute Assessment and Plan: Pancytopenia likely related to chemotherapy, could also be related to sepsis and septic shock -continue to monitor. wbc improving (7) Hypokalemia: Code(s): E87.6 - Hypokalemia Status: Acute Assessment and Plan: Will continue to replace potassium. check K, Mag, phos twice daily. Additional Plan DVT prophylaxis: SCDs due to thrombocytopenia. Subjective Date/time seen: 06/28/21 13:53 Patient is looking much better. No active complaints. She remains in the ICU but is breathing better, currently on high flow therapy with AIRVO 40 L and 55% FiO2 . She is tolerating liquid diet. She remains on amiodarone infusion, rate controlled in the 90s and back to sinus rhythm. She did not offer any additional complaints. Review of Systems Review of Systems: All systems reviewed & are unremarkable except as noted in HPI and below Constitutional: Constitutional: Reports fatigue, Denies headache(s) and Reports weakness Eyes: Eyes: Denies blurry vision ENT: Reports Normal hearing present, Denies dysphagia and Denies headache(s) Cardiovascular: Cardiovascular: Denies pedal edema, Denies leg edema, Denies palpitations a
[2021-06-28] MEDS: FUROSEMIDE 40 MG TABLET PO (15:53)
[2021-06-28] MEDS: AMIODARONE HCL 200 MG TABLET 400 MG PO (17:02)
[2021-06-29] VITALS (18 sets, daily range): BP systolic 96–136; BP diastolic 51–82; PULSE 82–100; RESP 20–32; TEMP 36.1–36.5; O2SAT 92–100
[2021-06-29] MEDS: CENTRAL LINE FLUSH 10 ML IV PUSH ×4 (06:32→22:01)
[2021-06-29] MEDS: CENTRAL LINE FLUSH 20 ML IV PUSH (06:32)
[2021-06-29 07:33] LABS: Hematocrit 23.9 % (37.0-47.0); Hemoglobin 7.5 g/dL (12.0-15.0); Mean Corpuscular HGB Conc 31.4 g/dl (32-36); Mean Corpuscular Hemoglobin 29.9 pg (26-34); Mean Corpuscular Volume 95.2 fl (80-100); Mean Platelet Volume 11.8 fl (7.4-10.4); Platelet Count Result 69 k/mm3 (150-375); Red Blood Count 2.51 M/mm3 (4.2-5.4); Red Cell Distribution Width 21.8 % (11.5-14.5); White Blood Count 2.4 K/mm3 (4.5-10.0)
[2021-06-29 07:55] LABS: Alanine Aminotransferase 27 U/L (4-35); Albumin Level 2.7 g/dL (3.5-5.1); Alkaline Phosphatase 73 U/L (38-126); Anion Gap 8 mmol/L (8-16); Aspartate Amino Transferase 36 U/L (14-36); Bilirubin,Total 0.5 mg/dL (0.2-1.3); Blood Urea Nitrogen 12 mg/dL (7-17); Calcium 7.8 mg/dL (8.4-10.2); Carbon Dioxide 26 mmol/L (22-30); Chloride 98 mmol/L (98-107); Estimated CRCL calculation 74 ml/min; Estimated Glomerular Filt Rate > 60; Glucose 102 mg/dL (65-110); Magnesium 1.7 mg/dL (1.6-2.3); Phosphorus 3.4 mg/dL (2.5-4.5); Potassium 2.9 mmol/L (3.4-5.0); Sodium 132 mmol/L (137-145)
[2021-06-29 08:03] LABS: NT Pro B Type Natriuretic Pept 209 pg/mL (5-100)
[2021-06-29] MEDS: AMIODARONE HCL 200 MG TABLET 400 MG PO ×2 (08:35→16:13)
[2021-06-29] MEDS: FUROSEMIDE 40 MG TABLET PO (08:35)
--- NOTE | 2021-06-29 08:45 | PM.IMPN ---
Progress Note: A&P Assessment and Plan (1) Shock: Code(s): R57.9 - Shock, unspecified Status: Acute Assessment and Plan: Multifactorial could be related to dehydration secondary to increased nausea, vomiting and poor oral intake, status post chemotherapy, could be related to infection -Hypotensive requiring pressors at presentation. Currently levo is off as of 06/26 evening; She is hemodynamically stable and improving, out of ICU 06/28. -History of PSVT. Noted atrial fibrillation with rapid ventricular response, was started on amiodarone drip after amiodarone 300 mg IV then 150 mg IV. She is currently back to normal sinus rhythm. BP remains soft; patient to remain on oral amiodarone for now per cards. -patient adequately fluid-resuscitated -Blood and urine culture remain negative. -Pleural fluid cultures no growth -pleural fluid Gram stain: No organisms with seen -Continue cefepime and vancomycin (initiated on 06/25/2021) -lactic acid is normal -continue to monitor urine output, renal function (2) Malignant pleural effusion: Code(s): J91.0 - Malignant pleural effusion Status: Acute Assessment and Plan: Left-sided moderate to large pleural effusion, likely malignant effusion. Patient has had previous thoracentesis -s/p IR performed ultrasound-guided thoracentesis removing 700 ml o fluid.Daily chest Xray. -cultures NGTD, Gram stain is negative -pulmonology has been consulted. -Repeat chest Xray 06/28/2021: complete opacification of the left hemithorax consistent with large left pleural effusion and associated atelectasis, cannot exclude underlying pneumonia or malignancy. Will order thoracentesis. Discussed with her risks and benefits in detail. (3) Dehydration: Code(s): E86.0 - Dehydration Status: Acute Assessment and Plan: Likely related to nausea, vomiting and decreased p.o. intake -most likely resolved as patient has received adequate amount of fluids (4) Syncope and collapse: Code(s): R55 - Syncope and collapse Status: Acute Assessment and Plan: Likely related to hypotension and hypovolemia secondary to increased nausea, vomiting, diarrhea decreased oral intake. -continue to monitor telemetry for any arrhythmia (5) Metastatic primary lung cancer: Code(s): C34.90 - Malignant neoplasm of unspecified part of unspecified bronchus or lung Status: Acute Assessment and Plan: History of metastatic lung cancer with metastases to bones, brain and thyroid -patient recently had a 5th cycle of her chemotherapy on 06/19/2021, follows up with her geomorphology teacher/oncologist at [place] - Dr. Richmond no indication for filgrastim as wbc is improving. (6) Pancytopenia: Code(s): D61.818 - Other pancytopenia Status: Acute Assessment and Plan: Pancytopenia likely related to chemotherapy, could also be related to sepsis and septic shock -continue to monitor. wbc improving (7) Hypokalemia: Code(s): E87.6 - Hypokalemia Status: Acute Assessment and Plan: Replace and monitor. Subjective Date/time seen: 06/29/21 08:45 Out of ICU yesterday. She was noted to have low saturations early this morning, and her FiO2 was increased to 70% on the Airvo, now able to come down to 55% again. She looks comfortable. She reports her breathing is the same. She is hemodynamically stable. Afebrile. Currently on 55% FiO2, 40 liters/minute. No SVT episodes overnight. Review of Systems Review of Systems: All systems reviewed & are unremarkable except as noted in HPI and below Exam Narrative: Gen: Alert, NAD Abd: Soft, NT, ND Heart: RRR Lungs: CTAB Ext: No lower extremity edema Objective Data Vital Signs Vital Signs: Vital Signs - 24 hr 06/28/21 09:51 06/28/21 10:00 06/28/21 11:50 Temperature Pulse Rate 98 96 Respiratory Rate 26 H 28 H Blood Pressure Pulse Oximetry 96 91 94 06/28/21 12:00 06/28/21 14:00 0
[2021-06-29] MEDS: POTASSIUM CHLORIDE 20 MEQ TABLET.ER 40 MEQ PO ×2 (12:27→16:12)
--- NOTE | 2021-06-29 14:29 | PM.PNPUL ---
Progress Note: A&P Assessment and Plan (1) Malignant pleural effusion: Code(s): J91.0 - Malignant pleural effusion Status: Acute Assessment and Plan: She has a malignant pleural effusion due to metastatic lung cancer with metastases to bones - lytic lesions of the right scapula and L1 vertebral body, brain and thyroid She had a recent 5th cycle of her chemotherapy on 06/19/2021, followed by Dr Vaughn typer/oncologist at [facility] She decided to have a repeat thoracentesis which is scheduled for tomorrow. Her shortness of breath is better compared to admission. She may be a candidate for a PleurX catheter for symptomatic relief of dyspnea. This might help, and will require advice from her oncologist to discuss with her. This could be performed at [facility], where she usually is admitted. We do not offer this at [facility]. She uses O2 at home, 3 L/min, now requiring more O2 using High flow nasal cannula 40 L/min and 55%. She wants to go to her son's wedding Jul 26, however will need to have the effusion tapped at least once before then. (2) Metastatic primary lung cancer: Code(s): C34.90 - Malignant neoplasm of unspecified part of unspecified bronchus or lung Status: Acute Assessment and Plan: see above (3) Acute on chronic respiratory failure with hypoxemia: Code(s): J96.21 - Acute and chronic respiratory failure with hypoxia Status: Acute Assessment and Plan: She is requiring more O2 compared to her home O2 flow which is 3 L/min. She was admitted needing 3 L/min, then required BiPAP and now high flow 40 L/min and 55%. Tapping left pleural effusion myah improve VQ matching, however she has a large amount of lung tissue with compression due to the effusion. After a thoracentesis when the compressed lung expands, transient worsening of O2 saturation may occur as this tissue is atelectatic with shunting of blood to the right lung. Subjective Date/time seen: 06/29/21 14:29 follow up : Alana Solis is a 65 year old female admitted with a large left malignant pleural effusion with metastatic adenocarcinoma, mets to brain, liver, scapula. 06/25 admitted with shock, pancytopenia from chemo, hyponatremia, on 06/26; initially was on O2 cannula 2-3 L/min 06/26 required Levophed briefly; left thoracentesis with removal of 700 ml fluid, followed by PSVT, treated with amiodarone, had new atrial fibrillation now in sinus rhythm. then required BiPAP, switched to high flow nasal cannula with amount of O2 being adjusted as her saturation varies. She has been transferred out of ICU today, is on AirVo, says that she does not want a thoracentesis today or tomorrow, at least for a few weeks due to the arrhythmia and dyspnea that she just experienced. She feels better today 06/28 compared to yesterday, transferred to IMU. She has not had an ABG at this hospital. She had pancytopenia, hyponatremia Na+ 131, low potassium down to 2.7, normal renal function. Pleural fluid 06/26 shows pH 7.456, excessive numbers of RBC, wbc, and 100% lymphocytes. This is a bloody lymphocytic effusion consistent with malignancy. The pH is normal, suggests she does not have an infected pleural space. DATA * 06/27/2021 CXR Near complete opacification of the left hemithorax consistent with enlarging left pleural effusion and likely combination of atelectasis and pneumonia. 2. Reticulonodular pattern throughout the right lung suspicious for metastatic disease and could not exclude superimposed mild pulmonary edema. * 06/29/2021 CXR :Persistent complete opacification of left hemithorax consistent with large left pleural effusion and atelectasis. Cannot exclude underlying pneumonia or malignancy. Reticulonodular pattern throughout the righ
[2021-06-30] VITALS (28 sets, daily range): BP systolic 91–122; BP diastolic 50–97; PULSE 80–104; RESP 18–24; TEMP 36.4–36.6; O2SAT 91–100
[2021-06-30] MEDS: CENTRAL LINE FLUSH 10 ML IV PUSH ×2 (06:26→14:44)
[2021-06-30 06:50] LABS: Hematocrit 24.1 % (37.0-47.0); Hemoglobin 7.7 g/dL (12.0-15.0); Immature Platelet Fraction Pct 7.6 % (0.9-11.2); Mean Corpuscular Hemoglobin 30.1 pg (26-34); Mean Corpuscular Volume 94.1 fl (80-100); Mean Platelet Volume 10.6 fl (7.4-10.4); Platelet Count Result 115 k/mm3 (150-375); Red Blood Count 2.56 M/mm3 (4.2-5.4); Red Cell Distribution Width 21.9 % (11.5-14.5); White Blood Count 3.7 K/mm3 (4.5-10.0)
[2021-06-30 07:06] LABS: Anion Gap 6 mmol/L (8-16); Carbon Dioxide 28 mmol/L (22-30); Chloride 97 mmol/L (98-107); Potassium 3.3 mmol/L (3.4-5.0); Sodium 131 mmol/L (137-145)
[2021-06-30 07:07] LABS: Alanine Aminotransferase 23 U/L (4-35); Albumin Level 3.1 g/dL (3.5-5.1); Alkaline Phosphatase 81 U/L (38-126); Anion Gap 6 mmol/L (8-16); Aspartate Amino Transferase 33 U/L (14-36); Bilirubin,Total 0.5 mg/dL (0.2-1.3); Blood Urea Nitrogen 15 mg/dL (7-17); Calcium 8.3 mg/dL (8.4-10.2); Carbon Dioxide 29 mmol/L (22-30); Chloride 98 mmol/L (98-107); Estimated CRCL calculation 59 ml/min; Estimated Glomerular Filt Rate > 60; Glucose 109 mg/dL (65-110); Potassium 3.3 mmol/L (3.4-5.0); Sodium 133 mmol/L (137-145)
[2021-06-30] MEDS: AMIODARONE HCL 200 MG TABLET 400 MG PO ×2 (09:24→17:06)
--- NOTE | 2021-06-30 11:17 | PM.IMPN ---
Progress Note: A&P Assessment and Plan (1) Shock: Code(s): R57.9 - Shock, unspecified Status: Acute Assessment and Plan: Multifactorial could be related to dehydration secondary to increased nausea, vomiting and poor oral intake, status post chemotherapy, could be related to infection -Hypotensive requiring pressors at presentation. Currently levo is off as of 06/26 evening; She is hemodynamically stable and improving, out of ICU 06/28. -History of PSVT. Noted atrial fibrillation with rapid ventricular response, was started on amiodarone drip after amiodarone 300 mg IV then 150 mg IV. She is currently back to normal sinus rhythm. BP remains soft; patient to remain on oral amiodarone for now per cards. -patient adequately fluid-resuscitated -Blood and urine culture remain negative. -Pleural fluid cultures no growth -pleural fluid Gram stain: No organisms with seen -Continue cefepime and vancomycin (initiated on 06/25/2021), plan to D/C tomorrow if remains stable and with negative cultures. -lactic acid is normal -continue to monitor urine output, renal function (2) Malignant pleural effusion: Code(s): J91.0 - Malignant pleural effusion Status: Acute Assessment and Plan: Left-sided moderate to large pleural effusion, likely malignant effusion. Patient has had previous thoracentesis -s/p IR performed ultrasound-guided thoracentesis removing 700 ml o fluid.Daily chest Xray. -cultures NGTD, Gram stain is negative -pulmonology has been consulted. -Repeat chest Xray 06/28/2021: complete opacification of the left hemithorax consistent with large left pleural effusion and associated atelectasis, cannot exclude underlying pneumonia or malignancy. Plan for thoracentesis today. Discussed with her risks and benefits in detail. (3) Dehydration: Code(s): E86.0 - Dehydration Status: Acute Assessment and Plan: Likely related to nausea, vomiting and decreased p.o. intake -most likely resolved as patient has received adequate amount of fluids (4) Syncope and collapse: Code(s): R55 - Syncope and collapse Status: Acute Assessment and Plan: Likely related to hypotension and hypovolemia secondary to increased nausea, vomiting, diarrhea decreased oral intake. -continue to monitor telemetry for any arrhythmia (5) Metastatic primary lung cancer: Code(s): C34.90 - Malignant neoplasm of unspecified part of unspecified bronchus or lung Status: Acute Assessment and Plan: History of metastatic lung cancer with metastases to bones, brain and thyroid -patient recently had a 5th cycle of her chemotherapy on 06/19/2021, follows up with her programmer business/oncologist at [place] - Dr. Richmond no indication for filgrastim as wbc is improving. (6) Pancytopenia: Code(s): D61.818 - Other pancytopenia Status: Acute Assessment and Plan: Pancytopenia likely related to chemotherapy, could also be related to sepsis and septic shock -continue to monitor. wbc improving (7) Hypokalemia: Code(s): E87.6 - Hypokalemia Status: Acute Assessment and Plan: Replace and monitor. Subjective Date/time seen: 06/30/21 11:17 Stable overnight, continues to require high-flow oxygen through Airvo. She feels her breathing is about the same. Hemodynamically stable. Afebrile. Heart rate has been 80s-90s mostly. Exam Narrative: Gen: Alert, NAD, high flow O2 Abd: Soft, NT, ND Heart: RRR Lungs: Decreased breath sounds on left Ext: No lower extremity edema Objective Data Vital Signs Vital Signs: Vital Signs - 24 hr 06/29/21 12:00 06/29/21 14:00 06/29/21 16:00 Temperature 97 F L 97.6 F Pulse Rate 95 99 97 Respiratory Rate 28 H 22 H Blood Pressure 135/82 136/68 Pulse Oximetry 92 100 06/29/21 16:13 06/29/21 18:00 06/29/21 20:00 Temperature 97.6 F Pulse Rate 98 92 96 Respiratory Rate 20 Blood Pressure 96/68 L Pulse Oximetry 98
[2021-06-30 11:53] LABS: Vancomycin Random 27.5 ug/mL (10-20)
[2021-06-30] MEDS: POTASSIUM CHLORIDE 20 MEQ TABLET 40 MEQ PO (12:43)
[2021-06-30] MEDS: ACETAMINOPHEN 325 MG TABLET 650 MG PO (12:46)
[2021-06-30] MEDS: NEOMYCIN/POLYMYXIN/BACITRACIN OINTMENT PACKET 1 PACKET TOPICAL (15:36)
--- NOTE | 2021-06-30 17:23 | PM.PNCARD ---
Progress Note: A&P Assessment and Plan (1) PSVT (paroxysmal supraventricular tachycardia): Code(s): I47.1 - Supraventricular tachycardia Status: Acute Assessment and Plan: History of PSVT, with an episode early yesterday morning, no recurrence on amiodarone. Since her blood pressure still soft and we cannot resume her metoprolol I will continue her amiodarone, probably short term. Reduce amiodarone dose to 400 mg daily. (2) PAF (paroxysmal atrial fibrillation): Code(s): I48.0 - Paroxysmal atrial fibrillation Status: Acute Assessment and Plan: PSVT degenerated into new onset atrial fibrillation on admission. Hopefully will not recur her on p.o. amiodarone Not a candidate for anticoagulation secondary to thrombocytopenia. (3) Acute diastolic CHF (congestive heart failure): Code(s): I50.31 - Acute diastolic (congestive) heart failure Status: Acute Assessment and Plan: Chest x-ray suggests some volume overload; BNP was only 209 and no h/o CHF. Had fluid resuscitation on admission. Diuresing and tolerating the po lasix w/ improvement of O2 needs and improved appearance of right lung on CXR. Hypokalemia addressed; on daily Kcl. Prob DC Lasix on discharge as I doubt she will need it long-term. (4) Shock: Code(s): R57.9 - Shock, unspecified Status: Acute Assessment and Plan: Resolved. Cultures neg. Increase activity: UP in chair. (5) Metastatic primary lung cancer: Code(s): C34.90 - Malignant neoplasm of unspecified part of unspecified bronchus or lung Status: Acute Assessment and Plan: Followed by Dr. Vaughn. (6) Pancytopenia: Code(s): D61.818 - Other pancytopenia Status: Acute Assessment and Plan: Improving. (7) Coronary artery disease: Qualifiers: Associated angina: without angina Coronary Disease-Associated Artery/Lesion type: [place] artery [place] vs. transplanted heart: [place] heart Qualified Code(s): I25.10 - Atherosclerotic heart disease of [place] coronary artery without angina pectoris Code(s): I25.10 - Atherosclerotic heart disease of [place] coronary artery without angina pectoris Status: Acute Assessment and Plan: STable. Subjective Date/time seen: 06/30/21 17:23 Interval history: Follow-up for paroxysmal atrial fibrillation, PSVT, diastolic CHF. Admitted with shock, pancytopenia, and history of stage IV lung cancer. Transient on Levophed, had thoracentesis 06/26/2021. 06/28/2021: No further arrhythmias. Improving, now on high-flow oxygen. Still very SOB w/ activity, eating. BP soft but stable, 93-107/60-70 mmHg. I's and O's yesterday: 4000/2400 cc's. Added furosemide 40 mg daily as she appeared to be in mild CHF. Says her #1 priority is to attend her son's wedding Jul 26; she will ask Dr. Vaughn for skip her chemo in Jun hoping she will be in better shape for the wedding. Date of Service 06/30/2021: Feeling better, eating. Not out of bed. Had thoracentesis today of another 400 cc of fluid. Review chest x-ray, right lung shows less CHF. Telemetry shows no further SVT or PAF. Diuresing reasonably well with the furosemide. BP stable. Down to 6 L of O2. Review of Systems Constitutional: Constitutional: Reports fatigue, Reports lethargy and Reports weakness ENT: Denies dysphagia Cardiovascular: Cardiovascular: Denies chest pain, Denies pedal edema, Denies leg edema, Denies lightheadedness, Denies palpitations, Reports dyspnea and Reports dyspnea on exertion Respiratory: Respiratory: Denies cough, Denies hemoptysis, Reports dyspnea and Reports dyspnea on exer
[2021-06-30] MEDS: METOPROLOL TARTRATE 25 MG TABLET PO (20:39)
[2021-06-30] MEDS: MIRTAZAPINE 15 MG TABLET PO (20:39)
[2021-07-01] VITALS (22 sets, daily range): BP systolic 86–121; BP diastolic 57–71; PULSE 71–102; RESP 18–20; TEMP 35.8–36.6; O2SAT 93–100
[2021-07-01 00:27] LABS: Albumin Pleural Fluid 2.2 g/dL
[2021-07-01 07:10] LABS: Hematocrit 27.1 % (37.0-47.0); Hemoglobin 8.2 g/dL (12.0-15.0); Mean Corpuscular HGB Conc 30.3 g/dl (32-36); Mean Corpuscular Hemoglobin 29.9 pg (26-34); Mean Corpuscular Volume 98.9 fl (80-100); Mean Platelet Volume 10.6 fl (7.4-10.4); Platelet Count Result 156 k/mm3 (150-375); Red Blood Count 2.74 M/mm3 (4.2-5.4); Red Cell Distribution Width 22.3 % (11.5-14.5); White Blood Count 4.9 K/mm3 (4.5-10.0)
[2021-07-01 07:39] LABS: Alanine Aminotransferase 20 U/L (4-35); Alkaline Phosphatase 85 U/L (38-126); Anion Gap 8 mmol/L (8-16); Aspartate Amino Transferase 26 U/L (14-36); Bilirubin,Total 0.5 mg/dL (0.2-1.3); Blood Urea Nitrogen 16 mg/dL (7-17); Calcium 8.6 mg/dL (8.4-10.2); Carbon Dioxide 24 mmol/L (22-30); Chloride 101 mmol/L (98-107); Estimated CRCL calculation 65 ml/min; Estimated Glomerular Filt Rate > 60; Glucose 123 mg/dL (65-110); Phosphorus 3.3 mg/dL (2.5-4.5); Sodium 133 mmol/L (137-145)
[2021-07-01] MEDS: ASPIRIN 81 MG ENTERIC TABLET PO (09:09)
[2021-07-01] MEDS: AMIODARONE HCL 200 MG TABLET 400 MG PO (09:10)
[2021-07-01] MEDS: FUROSEMIDE 40 MG TABLET PO (09:11)
[2021-07-01] MEDS: METOPROLOL TARTRATE 25 MG TABLET PO (09:11)
[2021-07-01] MEDS: ROSUVASTATIN 10 MG TABLET 40 MG PO (09:12)
[2021-07-01 09:39] LABS: Vancomycin Random 16.3 ug/mL (10-20)
[2021-07-01 12:03] LABS: Amylase, Pleural Fluid 10 U/L
--- NOTE | 2021-07-01 12:47 | PM.PNPUL ---
Progress Note: A&P Assessment and Plan (1) Malignant pleural effusion: Code(s): J91.0 - Malignant pleural effusion Status: Acute Assessment and Plan: She has a malignant pleural effusion due to metastatic lung cancer with metastases to bones - lytic lesions of the right scapula and L1 vertebral body, brain and thyroid She had a recent 5th cycle of her chemotherapy on 06/19/2021, followed by Dr Vaughn motor builder winder/oncologist at [facility] She decided to have a repeat thoracentesis which is scheduled for tomorrow. Her shortness of breath is better compared to admission. She may be a candidate for a PleurX catheter for symptomatic relief of dyspnea. This might help, and will require advice from her oncologist to discuss with her. This could be performed at [facility], where she usually is admitted. We do not offer this at [place]. She uses O2 at home, 3 L/min, on lower O2 now 4 L/min She wants to go to her son's wedding Jul 26, however will need to have the effusion tapped at least once before then. (2) Metastatic primary lung cancer: Code(s): C34.90 - Malignant neoplasm of unspecified part of unspecified bronchus or lung Status: Acute Assessment and Plan: see above (3) Acute on chronic respiratory failure with hypoxemia: Code(s): J96.21 - Acute and chronic respiratory failure with hypoxia Status: Acute Assessment and Plan: She is on lower O2 compared to last few days, more than what she uses at home which is 3 L/min. She was admitted needing 3 L/min, then required BiPAP, then high flow now to 4 L/min. Subjective Date/time seen: 07/01/21 12:47 follow up : Alana Solis is a 65 year old female admitted with a large left malignant pleural effusion with metastatic adenocarcinoma, mets to brain, liver, scapula. 06/25 admitted with shock, pancytopenia from chemo, hyponatremia, on 06/26; initially was on O2 cannula 2-3 L/min 06/26 required Levophed briefly; left thoracentesis with removal of 700 ml fluid, followed by PSVT, treated with amiodarone, had new atrial fibrillation now in sinus rhythm. then required BiPAP, switched to high flow nasal cannula with amount of O2 being adjusted as her saturation varies. She has been transferred out of ICU today, is on AirVo, says that she does not want a thoracentesis today or tomorrow, at least for a few weeks due to the arrhythmia and dyspnea that she just experienced. She feels better today 06/28 compared to yesterday, transferred to IMU. She has not had an ABG at this hospital. She had pancytopenia, hyponatremia Na+ 131, low potassium down to 2.7, normal renal function. Pleural fluid 06/26 shows pH 7.456, excessive numbers of RBC, wbc, and 100% lymphocytes. This is a bloody lymphocytic effusion consistent with malignancy. The pH is normal, suggests she does not have an infected pleural space. 07/01 had repeat thoracentesis with only 400 ml removed; her O2 requirement is lower, 4 L/min; she is still markedly deconditioned DATA * 06/27/2021 CXR Near complete opacification of the left hemithorax consistent with enlarging left pleural effusion and likely combination of atelectasis and pneumonia. 2. Reticulonodular pattern throughout the right lung suspicious for metastatic disease and could not exclude superimposed mild pulmonary edema. * 06/29/2021 CXR :Persistent complete opacification of left hemithorax consistent with large left pleural effusion and atelectasis. Cannot exclude underlying pneumonia or malignancy. Reticulonodular pattern throughout the right lung suspicious for metastatic disease and could not exclude superimposed mild pulmonary edema. Review of Systems Review of Systems: All systems reviewed & are unremarkable except as noted in HPI and b
--- NOTE | 2021-07-01 13:04 | PM.IMPN ---
Progress Note: A&P Assessment and Plan (1) Shock: Code(s): R57.9 - Shock, unspecified Status: Acute Assessment and Plan: Multifactorial could be related to dehydration secondary to increased nausea, vomiting and poor oral intake, status post chemotherapy, could be related to infection -Hypotensive requiring pressors at presentation. Currently levo is off as of 06/26 evening; She is hemodynamically stable and improving, out of ICU 06/28. -History of PSVT. Noted atrial fibrillation with rapid ventricular response, was started on amiodarone drip after amiodarone 300 mg IV then 150 mg IV. She is currently back to normal sinus rhythm. BP remains soft; patient to remain on oral amiodarone for now per cards. -patient adequately fluid-resuscitated -Blood and urine culture remain negative. -Pleural fluid cultures no growth -pleural fluid Gram stain: No organisms with seen -Continue cefepime and vancomycin (initiated on 06/25/2021), plan to D/C tomorrow if remains stable and with negative cultures. -lactic acid is normal -continue to monitor urine output, renal function (2) Malignant pleural effusion: Code(s): J91.0 - Malignant pleural effusion Status: Acute Assessment and Plan: Left-sided moderate to large pleural effusion, likely malignant effusion. Patient has had previous thoracentesis -s/p IR performed ultrasound-guided thoracentesis removing 700 ml o fluid.Daily chest Xray. -cultures NGTD, Gram stain is negative -pulmonology has been consulted. -Repeat chest Xray 06/28/2021: complete opacification of the left hemithorax consistent with large left pleural effusion and associated atelectasis, cannot exclude underlying pneumonia or malignancy. Thoracentesis 06/30 400 mL of fluid removed. She felt better afterwards. Continue to wean oxygen. (3) Dehydration: Code(s): E86.0 - Dehydration Status: Acute Assessment and Plan: Likely related to nausea, vomiting and decreased p.o. intake -most likely resolved as patient has received adequate amount of fluids (4) Syncope and collapse: Code(s): R55 - Syncope and collapse Status: Acute Assessment and Plan: Likely related to hypotension and hypovolemia secondary to increased nausea, vomiting, diarrhea decreased oral intake. -continue to monitor telemetry for any arrhythmia (5) Metastatic primary lung cancer: Code(s): C34.90 - Malignant neoplasm of unspecified part of unspecified bronchus or lung Status: Acute Assessment and Plan: History of metastatic lung cancer with metastases to bones, brain and thyroid -patient recently had a 5th cycle of her chemotherapy on 06/19/2021, follows up with her railroad wheels and axle inspector/oncologist at [place] - Dr. Richmond no indication for filgrastim as wbc is improving. (6) Pancytopenia: Code(s): D61.818 - Other pancytopenia Status: Acute Assessment and Plan: Pancytopenia likely related to chemotherapy, could also be related to sepsis and septic shock -continue to monitor. Improving. (7) Hypokalemia: Code(s): E87.6 - Hypokalemia Status: Acute Assessment and Plan: Replace and monitor. Subjective Date/time seen: 07/01/21 13:04 No major issues overnight, was able to slowly wean oxygen down to 6 liters/minute. she feels comfortable, but has not been doing any activity. Hemodynamically stable. Afebrile. Review of Systems Review of Systems: All systems reviewed & are unremarkable except as noted in HPI and below Exam Narrative: Gen: Alert, NAD, high flow O2 Abd: Soft, NT, ND Heart: RRR Lungs: Decreased breath sounds on left Ext: No lower extremity edema Objective Data Vital Signs Vital Signs: Vital Signs - 24 hr 06/30/21 14:00 06/30/21 14:18 06/30/21 14:27 Temperature Pulse Rate 90 Respiratory Rate Blood Pressure Pulse Oximetry 98 100 06/30/21 16:00 06/30/21 16:05 06/30/21 17:06 Temperature 97.5 F L
--- NOTE | 2021-07-01 14:13 | PCDIET ---
Nutrition Follow-Up Complete: Nutrition Diagnosis: Suboptimal oral intake related to multiple medical issues as evidenced by inability to eat breakfast meal. Nutrition Goal: Patient to consume 50% of meals or greater. Goal not met. Patient consuming 50% or less at most meals but requests Ensure at times, per nurse aid. Recommend increasing Ensure Compact (220kcal, 9g protein) to TID with all meals and prn and continuing regular diet. If medically appropriate, could also consider appetite stimulant. Last recorded weight is 84.2 kg which is down from last review. -I/O. Bowel Motility: Last documented BM on 06/28/21 x 1. Labs Reviewed: RBC (2.74), Hgb (8.2), Hct (27.1), Glu (123), Na (133), Alb (3.0) Meds Noted: Pacerone, Maxipime, Lasix, Lopressor, Remeron, Crestor, Vancomycin Additional Notes: No pressure sores documented. Will continue to monitor with same goal. Nutrition Monitoring and Evaluation: Follow up in 3 days.
[2021-07-01 14:39] LABS: LDH Pleural Fluid 348 U/L; Total Protein Pleural Fluid 3.3 g/dL
[2021-07-01 14:39] LABS: Glucose Pleural Fluid 127 mg/dL
--- NOTE | 2021-07-01 17:31 | PC.NURSE ---
On 07/01/21, the student, Valencia Walsh, provided care and completed [facility] documentation on this patient. I have reviewed the student's documentation and agree with the findings.
[2021-07-01] MEDS: MIRTAZAPINE 15 MG TABLET PO (21:14)
[2021-07-02] VITALS (17 sets, daily range): BP systolic 97–111; BP diastolic 55–80; PULSE 88–127; RESP 20–32; TEMP 36.6–37.5; O2SAT 92–100
[2021-07-02 06:44] LABS: Estimated CRCL calculation 49 ml/min; Estimated Glomerular Filt Rate 50
[2021-07-02 06:53] LABS: Anion Gap 7 mmol/L (8-16); Carbon Dioxide 28 mmol/L (22-30); Chloride 97 mmol/L (98-107); Potassium 3.1 mmol/L (3.4-5.0); Sodium 132 mmol/L (137-145)
[2021-07-02] MEDS: AMIODARONE HCL 200 MG TABLET 400 MG PO (09:42)
--- NOTE | 2021-07-02 10:34 | PM.IMPN ---
Progress Note: A&P Assessment and Plan (1) Shock: Code(s): R57.9 - Shock, unspecified Status: Acute Assessment and Plan: Multifactorial could be related to dehydration secondary to increased nausea, vomiting and poor oral intake, status post chemotherapy, could be related to infection -Hypotensive requiring pressors at presentation. Currently levo is off as of 06/26 evening; She is hemodynamically stable and improving, out of ICU 06/28. -History of PSVT. Noted atrial fibrillation with rapid ventricular response, was started on amiodarone drip after amiodarone 300 mg IV then 150 mg IV. She is currently back to normal sinus rhythm. BP remains soft; patient to remain on oral amiodarone for now per cards. -patient adequately fluid-resuscitated -Blood and urine culture remain negative. -Pleural fluid cultures no growth -pleural fluid Gram stain: No organisms with seen - cefepime and vancomycin, discontinued no evidence of infection -lactic acid is normal -continue to monitor urine output, renal function (2) Malignant pleural effusion: Code(s): J91.0 - Malignant pleural effusion Status: Acute Assessment and Plan: Left-sided moderate to large pleural effusion, likely malignant effusion. Patient has had previous thoracentesis -s/p IR performed ultrasound-guided thoracentesis removing 700 ml o fluid.Daily chest Xray. -cultures NGTD, Gram stain is negative -pulmonology has been consulted. -Repeat chest Xray 06/28/2021: complete opacification of the left hemithorax consistent with large left pleural effusion and associated atelectasis, cannot exclude underlying pneumonia or malignancy. Thoracentesis 06/30 400 mL of fluid removed. She felt better afterwards. Continue to wean oxygen. (3) Dehydration: Code(s): E86.0 - Dehydration Status: Acute Assessment and Plan: Likely related to nausea, vomiting and decreased p.o. intake -most likely resolved as patient has received adequate amount of fluids (4) Syncope and collapse: Code(s): R55 - Syncope and collapse Status: Acute Assessment and Plan: Likely related to hypotension and hypovolemia secondary to increased nausea, vomiting, diarrhea decreased oral intake. -continue to monitor telemetry for any arrhythmia (5) Metastatic primary lung cancer: Code(s): C34.90 - Malignant neoplasm of unspecified part of unspecified bronchus or lung Status: Acute Assessment and Plan: History of metastatic lung cancer with metastases to bones, brain and thyroid -patient recently had a 5th cycle of her chemotherapy on 06/19/2021, follows up with her freight dispatcher/oncologist at [place] - Dr. Richmond no indication for filgrastim as wbc is improving. (6) Pancytopenia: Code(s): D61.818 - Other pancytopenia Status: Acute Assessment and Plan: Pancytopenia likely related to chemotherapy, could also be related to sepsis and septic shock -continue to monitor. Improving. (7) Hypokalemia: Code(s): E87.6 - Hypokalemia Status: Acute Assessment and Plan: Replace and monitor. Additional Plan Code status: Full code DVT proph: SCDs given low counts Dipso: Short-term rehab placement, can discharge with oxygen by MD, with close follow-up with her primary provider and oncologist. Subjective Date/time seen: 07/02/21 10:34 She looks and feels more comfortable this morning, reports no major events overnight. She has been hemodynamically stable. Heart rate has been 80-100 mostly. Currently on 3 L of oxygen by nasal cannula. Has not been getting up out of bed. Review of Systems Review of Systems: All systems reviewed & are unremarkable except as noted in HPI and below Exam Narrative: Gen: Alert, NAD, high flow O2 Abd: Soft, NT, ND Heart: RRR Lungs: Decreased breath sounds on left Ext: No lower extremity edema Objective Data Vital Signs Vital Signs: Vital Signs - 24 hr 07/01/21 1
[2021-07-02] MEDS: ASPIRIN 81 MG ENTERIC TABLET PO (10:49)
[2021-07-02] MEDS: FUROSEMIDE 40 MG TABLET PO (10:49)
[2021-07-02] MEDS: ROSUVASTATIN 10 MG TABLET 40 MG PO (10:50)
[2021-07-02] MEDS: METOPROLOL TARTRATE 25 MG TABLET PO (10:56)
[2021-07-02] MEDS: POTASSIUM CHLORIDE 20 MEQ TABLET.ER 40 MEQ PO ×2 (12:37→18:22)
--- NOTE | 2021-07-02 14:09 | PM.PNPUL ---
Progress Note: A&P Assessment and Plan (1) Malignant pleural effusion: Code(s): J91.0 - Malignant pleural effusion Status: Acute Assessment and Plan: She has a malignant pleural effusion due to metastatic lung cancer with metastases to bones - lytic lesions of the right scapula and L1 vertebral body, brain and thyroid. She had 700 ml removed at [facility] in May. She had a recent 5th cycle of her chemotherapy on 06/19/2021, followed by Dr Vaughn, [facility] oncologist @ [facility] She decided to have a repeat thoracentesis which is scheduled for tomorrow. Her shortness of breath is better compared to admission. She agreed to transfer to [place] for a pleural catheter to allow drainage of fluid when needed, allowing her to stay out of a hospital more days and attend her son's wedding early July. Dr Gabi Fernández agreed to accept her to oncology service if rapid COVID test is negative. This is penidng. Her son Micheal said that her code status is no intubation, and yes for chest compressions and shocks. (2) Metastatic primary lung cancer: Code(s): C34.90 - Malignant neoplasm of unspecified part of unspecified bronchus or lung Status: Acute Assessment and Plan: see above (3) Acute on chronic respiratory failure with hypoxemia: Code(s): J96.21 - Acute and chronic respiratory failure with hypoxia Status: Acute Assessment and Plan: She is on same O2 flow that she uses at home which is 3 L/min. She was admitted needing 3 L/min, then required BiPAP, then high flow now to 3 L/min. Subjective Date/time seen: 07/02/21 14:09 follow up : Alana Solis is a 65 year old female admitted with a large left malignant pleural effusion with metastatic adenocarcinoma, mets to brain, liver, scapula. 06/25 admitted with shock, pancytopenia from chemo, hyponatremia Na 131, low K+ 2.7, 06/26; initially was on O2 cannula 2-3 L/min 06/26 required Levophed briefly; left thoracentesis with removal of 700 ml fluid, followed by PSVT, treated with amiodarone, had new atrial fibrillation now in sinus rhythm; then required BiPAP, switched to high flow nasal cannula with amount of O2 being adjusted as her saturation varies. Pleural fluid :pH 7.456, excessive numbers of RBC, wbc, and 100% lymphocytes. This is a bloody lymphocytic effusion consistent with malignancy. The pH is normal, suggests she does not have an infected pleural space. 06/28 transferred out of ICU today, on AirVo, says that she does not want a thoracentesis today or tomorrow, at least for a few weeks due to the arrhythmia and dyspnea that she just experienced. She feels better today 06/28 compared to yesterday, transferred to IMU. 07/01 had repeat thoracentesis with only 400 ml removed on 06/30; her O2 requirement is lower, 4 L/min; markedly deconditioned 07/02 O2 requirement is down to 3 L/min. Respiratory rate is high, 24. I spoke with Dr Vaughn earlier about PleurX catheter; he was in favor and recommended [place] for this. I spoke w patient, her son Micheal [phone], and conference call with sister Jacque. They agree with getting drainage catheter. I spoke with oncologist Dr Gabi FernándezStarting the process now calling transfer line at [place]. DATA * 06/27/2021 CXR : Near complete opacification of the left hemithorax consistent with enlarging left pleural effusion and likely combination of atelectasis and pneumonia. Reticulonodular pattern throughout the right lung suspicious for metastatic disease and could not exclude superimposed mild pulmonary edema. * 06/29/2021 CXR :Persistent complete opacification of left hemithorax consistent with large left pleural effusion and atelectasis. Cannot exclude underlying pneumonia or malignancy. Reticulonodular pattern t
--- NOTE | 2021-07-02 16:52 | PM.TDS ---
Transfer Discharge Sum: Prov Provider Date of admission: 06/25/21 16:46 Primary care physician: Evin Jhaveri MD Admitting clinician: Donita Tavera MD Consults: 06/25/21 Consult to Physician Routine Comment: Consulting Provider: Miller Watts Reason for consultation: shock Has provider been notified: Yes 06/26/21 08:44 Consult to Physician Routine Comment: Consulting Provider: Sancho Richmond call circuit worker/MD group to consult: DR. RICHMOND Reason for consultation: Leukopenia post chemo, septic shock Has provider been notified: Yes 06/27/21 Consult to Physician Routine Comment: Consulting Provider: Yon Xavier Reason for consultation: SVT, Afib RVR Has provider been notified: No Consult to Physician Routine Comment: Consulting Provider: Adelina Rizzo Reason for consultation: possible bronchoscopy Has provider been notified: No DS: Admitting Diagnosis Discharge Date 07/02/2021 Admitting Diagnosis acute hypoxemic respiratory failure DS: Discharge Diagnosis Discharge Diagnosis (1) Shock: Code(s): R57.9 - Shock, unspecified Status: Acute Assessment and Plan: Multifactorial could be related to dehydration secondary to increased nausea, vomiting and poor oral intake, status post chemotherapy, could be related to infection -Hypotensive requiring pressors at presentation. Currently levo is off as of 06/26 evening; She is hemodynamically stable and improving, out of ICU 06/28. -History of PSVT. Noted atrial fibrillation with rapid ventricular response, was started on amiodarone drip after amiodarone 300 mg IV then 150 mg IV. She is currently back to normal sinus rhythm. BP remains soft; patient to remain on oral amiodarone for now per cards. -patient adequately fluid-resuscitated -Blood and urine culture remain negative. -Pleural fluid cultures no growth -pleural fluid Gram stain: No organisms with seen - cefepime and vancomycin, discontinued no evidence of infection -lactic acid is normal -continue to monitor urine output, renal function (2) Malignant pleural effusion: Code(s): J91.0 - Malignant pleural effusion Status: Acute Assessment and Plan: Left-sided moderate to large pleural effusion, likely malignant effusion. Patient has had previous thoracentesis -s/p IR performed ultrasound-guided thoracentesis removing 700 ml o fluid.Daily chest Xray. -cultures NGTD, Gram stain is negative -pulmonology has been consulted. -Repeat chest Xray 06/28/2021: complete opacification of the left hemithorax consistent with large left pleural effusion and associated atelectasis, cannot exclude underlying pneumonia or malignancy. Thoracentesis 06/30 400 mL of fluid removed. She felt better afterwards. Continue to wean oxygen. (3) Dehydration: Code(s): E86.0 - Dehydration Status: Acute Assessment and Plan: Likely related to nausea, vomiting and decreased p.o. intake -most likely resolved as patient has received adequate amount of fluids (4) Syncope and collapse: Code(s): R55 - Syncope and collapse Status: Acute Assessment and Plan: Likely related to hypotension and hypovolemia secondary to increased nausea, vomiting, diarrhea decreased oral intake. -continue to monitor telemetry for any arrhythmia (5) Metastatic primary lung cancer: Code(s): C34.90 - Malignant neoplasm of unspecified part of unspecified bronchus or lung Status: Acute Assessment and Plan: History of metastatic lung cancer with metastases to bones, brain and thyroid -patient recently had a 5th cycle of her chemotherapy on 06/19/2021, follows up with her weeder thinner/oncologist at [place] - Dr. Richmond no indication for filgrastim as wbc is improving. (6) Pancytopenia: Code(s): D61.818 - Other pancytopenia Status: Acute Assessment and Plan: Pancytopenia likely related to chemotherapy, could also be related to sepsis
[2021-07-02 17:15] LABS: EDCOVIDSCREEN Negative (Negative)
--- NOTE | 2021-07-02 18:17 | PM.PNCARD ---
Progress Note: A&P Assessment and Plan (1) PSVT (paroxysmal supraventricular tachycardia): Code(s): I47.1 - Supraventricular tachycardia Status: Acute Assessment and Plan: History of PSVT, with an episode early during admission, no recurrence on po amiodarone. Since her blood pressure still soft and we cannot resume her metoprolol I will continue her amiodarone. Reduce amiodarone dose to 200 mg daily. (2) PAF (paroxysmal atrial fibrillation): Code(s): I48.0 - Paroxysmal atrial fibrillation Status: Acute Assessment and Plan: PSVT degenerated into new onset atrial fibrillation on admission. Hopefully will not recur her on p.o. amiodarone Not a candidate for anticoagulation secondary to thrombocytopenia. (3) Sinus tachycardia: Code(s): R00.0 - Tachycardia, unspecified Status: Acute Assessment and Plan: Sinus tachycardia, low grade temp, new right-sided findings on cXR ... Wonder if she is developing pneumonia? Pulmonary following. (4) Acute diastolic CHF (congestive heart failure): Code(s): I50.31 - Acute diastolic (congestive) heart failure Status: Acute Assessment and Plan: Chest x-ray suggests some volume overload; BNP was only 209 and no h/o CHF. Had fluid resuscitation on admission. Diuresing and tolerating the po lasix w/ improvement of O2 needs and improved appearance of right lung on CXR. Hypokalemia addressed; on daily Kcl. DC Lasix as I doubt she will need it long-term. (5) Shock: Code(s): R57.9 - Shock, unspecified Status: Acute Assessment and Plan: Resolved. Cultures neg. Increase activity: UP in chair. (6) Metastatic primary lung cancer: Code(s): C34.90 - Malignant neoplasm of unspecified part of unspecified bronchus or lung Status: Acute Assessment and Plan: Followed by Dr. Vaughn. (7) Coronary artery disease: Qualifiers: Associated angina: without angina Coronary Disease-Associated Artery/Lesion type: [place] artery [place] vs. transplanted heart: [place] heart Qualified Code(s): I25.10 - Atherosclerotic heart disease of [place] coronary artery without angina pectoris Code(s): I25.10 - Atherosclerotic heart disease of [place] coronary artery without angina pectoris Status: Acute Assessment and Plan: STable. Additional Plan Discussed end of life issues and hospice care w/ pt. Wished her well. Will sign off, please call if we can be of further assistance. Subjective Date/time seen: 07/02/21 18:17 Interval history: Follow-up for paroxysmal atrial fibrillation, PSVT, diastolic CHF. Admitted with shock, pancytopenia, and history of stage IV lung cancer. Transient on Levophed, had thoracentesis 06/26/2021. 06/28/2021: No further arrhythmias. Improving, now on high-flow oxygen. Still very SOB w/ activity, eating. BP soft but stable, 93-107/60-70 mmHg. I's and O's yesterday: 4000/2400 cc's. Added furosemide 40 mg daily as she appeared to be in mild CHF. Says her #1 priority is to attend her son's wedding Jul 26; she will ask Dr. Vaughn for skip her chemo in Jun hoping she will be in better shape for the wedding. Date of Service 06/30/2021: Feeling better, eating. Not out of bed. Had thoracentesis today of another 400 cc of fluid. Review chest x-ray, right lung shows less CHF. Telemetry shows no further SVT or PAF. Diuresing reasonably well with the furosemide. BP stable. Down to 6 L of O2. Date of service 07/02/2021: Patient is being transferred to [facility] for Pleur-X catheter. She is considering Hospice, This is not living. Down to 3 L O2. T
[2021-07-02] MEDS: ALPRAZolam (*CRX) 0.25 MG TABLET PO (18:25)
[2021-07-02] MEDS: MIRTAZAPINE 15 MG TABLET PO (20:34)
--- NOTE | 2021-07-02 21:25 | PC.NURSE ---
report given to clair huynh at [place].
--- NOTE | 2021-07-02 22:23 | PC.NURSE ---
[facility] here to [facility]erry picker patient, report and update given to clari huynh at [place].
--- NOTE | 2021-07-28 05:29 | PM.CCN ---
Critical Care Event Note Summary Code activated: No Narrative: This case had a high probability of a clinically significant, sudden, or life threatening deterioration of this patient's condition which required my full and direct attention, intervention and personal management. Date of service 06/27/21 I was called to the patient's room who was in the intensive care unit for a heart rate of 250. Blood pressure/ respiratory rate stable Patient awake and alert in no acute distress. Telemetry monitoring showed a reviewing the 250 rate Thomas irving seen 6 mg IV push was given which slowed down the rhythm and uncover atrial fibrillation Patient had another episode of heart rate climbing up to 250 Amiodarone 300 mg IV push once is slowed and rhythm Rhythm became fast again another amiodarone 150 mg IV push given which brought the rhythm down to 120 Amiodarone drip was started. Critical care time: 30 - 74 mins
== END 2021-07-02 22:25 | disposition short-term general hospital (02) | DRG 180 ==
LOC: ANHED 12:04 → ANHICU 20:54 → ANHIMU 06-29 14:01 → ANHICU 07-03 12:26 → ANHIMU 07-03 12:26
PROVIDERS: Internal Medicine; Internal Medicine Critical Care Medicine; Internal Medicine Hematology & Oncology; Physician Assistant; Admitting Provider Internal Medicine; Emergency Provider General Practice; PCP Family Medicine; Visit Provider Internal Medicine Nephrology
DX: C34.90 Malignant neoplasm of unspecified part of unspecified bronchus or lung (principal); R57.1 Hypovolemic shock; D61.810 Antineoplastic chemotherapy induced pancytopenia; I50.31 Acute diastolic (congestive) heart failure; J96.21 Acute and chronic respiratory failure with hypoxia; E87.1 Hypo-osmolality and hyponatremia; J91.0 Malignant pleural effusion; C77.9 Secondary and unspecified malignant neoplasm of lymph node, unspecified; C79.31 Secondary malignant neoplasm of brain; C79.51 Secondary malignant neoplasm of bone; C79.89 Secondary malignant neoplasm of other specified sites; I47.1 Supraventricular tachycardia; I11.0 Hypertensive heart disease with heart failure; I48.0 Paroxysmal atrial fibrillation; Z20.822 Contact with and (suspected) exposure to COVID-19; T45.1X5A Adverse effect of antineoplastic and immunosuppressive drugs, initial encounter; R55 Syncope and collapse; E87.6 Hypokalemia; E83.42 Hypomagnesemia; I25.10 Atherosclerotic heart disease of native coronary artery without angina pectoris; I25.2 Old myocardial infarction; Z79.82 Long term (current) use of aspirin; Z79.899 Other long term (current) drug therapy; Z95.5 Presence of coronary angioplasty implant and graft
CPT/HCPCS: 32555; 36415; 70450; 71045; 71275; 74176; 80048; 80051; 80053; 80076; 80202; 81001; 82040; 82042; 82150; 82565; 82607; 82728; 82746; 82945; 82948; 83540; 83550; 83605; 83615; 83690; 83735; 83880; 83986; 84100; 84155; 84157; 84443; 85025; 85027; 85055; 85060; 85610; 85730; 86850; 86900; 86901; 87015; 87040; 87070; 87075; 87086; 87102; 87116; 87205; 87206; 87426; 88104; 88108; 88184; 88305; 89051; 93005; 94002; 96361; 96374; 97161; 97165; 97535; 99285; A9270; C1751; C8929; C9803; J0153; J0282; J0692; J1940; J2060; J2405; J3370; J3475; J3480; J7030; J7050; Q9957; Q9967; U0003; U0005